=== PATIENT | male | born 1945 | race Caucasian/White ===

== ENCOUNTER → 2016-08-26 | Outpatient (CLI) | payer MEDICARE, MEDICAID ==
[~2016-08-26] MED LIST: ASP81TEC PO; CATHETER FLUSH 10 ML SYR IV PRN; IOHEXOL 350 MG/ML 100 ML (OMNIPAQUE 350) VIAL IV ONE; LSNP10T PO; MTP25TSR PO; PHEN-566 PO; PNT40TEC PO
[2016-08-26 09:37] LABS: ALANINE AMINOTRANSFERASE 23 U/L (0-55); ALBUMIN 4.3 G/DL (3.2-4.5); ANION GAP 11 MMOL/L (5-14); ASPARTATE AMINO TRANSFERASE 22 U/L (5-34); BILIRUBIN,TOTAL 0.5 MG/DL (0.1-1.0); BLOOD UREA NITROGEN 13 MG/DL (7-18); BUN/CREATININE RATIO 13; CALCIUM 9.6 MG/DL (8.5-10.1); CARBON DIOXIDE 22 MMOL/L (21-32); CHLORIDE 103 MMOL/L (98-107); CHOLESTEROL 218 MG/DL (< 200); CREATININE SERUM 1.02 MG/DL (0.60-1.30); DIRECT LDL 145 MG/DL (1-129); GFR ESTIMATED > 60; GLUCOSE 107 MG/DL (70-105); SODIUM 136 MMOL/L (135-145); TOTAL PROTEIN 7.2 G/DL (6.4-8.2); TRIGLYCERIDES 260 MG/DL (<150); VLDL CHOLESTEROL 52 MG/DL (5-40)
--- NOTE | 2016-08-26 11:33 | Diagnostic Imaging Report ---
EXAMINATION: CT angiogram of the abdomen. INDICATION: Followup aneurysm. CONTRAST: 100 mL of Omnipaque 350 was administered intravenously. COMPARISON: 12/30/2012. 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 There is a single renal artery on the right side and two left renal arteries noted at the same level. The aneurysm extends to the level of the bifurcation without aneurysm of the common iliac arteries which are patent. The visualized portions of the internal and external iliac arteries proximally are patent. There is an intramural thrombus within the aneurysm with a patent lumen. The SMA, celiac trunk, renal arteries, and MELLO are all patent. On 12/30/2012, the AAA maximum caliber was 5.2 cm. The lung bases appear clear. There is a 1.9 cm gallstone with no evidence of cholecystitis. The liver, spleen, pancreas, and adrenal glands appear unremarkable. There is a small to moderate fat-containing umbilical hernia. The osseous structures demonstrate grade 1 spondylolisthesis of L5 over S1 with underlying bilateral chronic appearing pars defects at the L5 level. IMPRESSION: 1. Enlarging infrarenal AAA now measuring 7.2 cm compared to 5.2 cm in 2013. 2. Small to moderate fat-containing umbilical hernia. 3. Cholelithiasis. The findings were discussed with Dr. Heath at 12:30 PM. Dictated by: Dictated on workstation # [id number]
== END ==
LOC: RAD 09:02
PROVIDERS: ATTEND Physician Assistant
DX: I10 Essential (primary) hypertension (principal); I71.4 Abdominal aortic aneurysm, without rupture; I25.10 Atherosclerotic heart disease of native coronary artery without angina pectoris; Z72.0 Tobacco use
CPT/HCPCS: 36415; 74175; 80053; 80061

== ENCOUNTER → 2016-09-04 | Outpatient (CLI) | payer MEDICARE, MEDICAID ==
[~2016-09-04] MED LIST changes: -CATHETER FLUSH 10 ML SYR IV PRN; -IOHEXOL 350 MG/ML 100 ML (OMNIPAQUE 350) VIAL IV ONE; +RT-ALBUTEROL SULF 2.5 MG/3 ML PRE-MIX VIAL IH ONE; +RT-ALBUTEROL SULF 2.5 MG/3 ML PRE-MIX VIAL ONE
== END ==
LOC: RT 14:51
PROVIDERS: ATTEND Thoracic Surgery (Cardiothoracic Vascular Surgery)
DX: Z01.818 Encounter for other preprocedural examination (principal)
CPT/HCPCS: 94060; 94640; 94726; 94729

== ENCOUNTER → 2016-09-09 | Outpatient (CLI) | payer MEDICARE, MEDICAID ==
[~2016-09-09] MED LIST changes: -RT-ALBUTEROL SULF 2.5 MG/3 ML PRE-MIX VIAL IH ONE; -RT-ALBUTEROL SULF 2.5 MG/3 ML PRE-MIX VIAL ONE
== END ==
LOC: CARD 11:18
PROVIDERS: ATTEND Thoracic Surgery (Cardiothoracic Vascular Surgery)
DX: Z01.818 Encounter for other preprocedural examination (principal)

== ENCOUNTER → 2016-09-14 | Outpatient (CLI) | payer MEDICARE, MEDICAID ==
[~2016-09-14] MED LIST changes: +CATHETER FLUSH 10 ML SYR IV PRN; +REGADENOSON 0.4 MG/5 ML SYR (LEXISCAN) IV ONE
[2016-09-14 09:05] VITALS: BP 119/56
--- NOTE | 2016-09-14 12:57 | STRESS TEST ---
DATE OF SERVICE: 09/14/2016 LEXISCAN MYOVIEW STRESS REPORT REFERRING PHYSICIANS: Dr. Chacon and Dr. Jordan Stevenson Baseline heart rate is 63. Baseline blood pressure 124/71. Baseline EKG is sinus rhythm with no ischemic changes. SUMMARY: The patient received 10.69 mCi of technetium-99 Myoview and the resting images were obtained. Then, the patient received 0.4 mg of Lexiscan followed by 30.4 mCi of technetium-99 Myoview. Throughout the test, there were no EKG changes. The resting and stress images were reviewed and compared in the short axis, horizontal long axis, and vertical long axis views. Review of the images showed diaphragmatic attenuation with mild decreased uptake at the mid to apical inferior wall and inferolateral wall. SSS is 6. SDS 6. TID value 1.17. On the gated images, the left ventricle appeared to be normal size with normal contractility. Calculated ejection fraction 65%. CONCLUSION: 1. The patient tolerated Lexiscan well. 2. Diaphragmatic attenuation affecting the quality of the images with mild decreased uptake at the mid to apical inferior wall and inferolateral wall with subtle reversibility. 3. Normal left ventricular size with normal contractility. Calculated ejection fraction 65%. Job ID: [id number] DocumentID: [id number] Dictated Date: 09/14/2016 11:56:58 Polymerization Engineer Date: 09/14/2016 12:52:31 Dictated By: ALFREDA HASSAN MD
== END ==
LOC: CARD 07:10
PROVIDERS: ATTEND Thoracic Surgery (Cardiothoracic Vascular Surgery)
DX: I71.4 Abdominal aortic aneurysm, without rupture (principal)
CPT/HCPCS: 78452; 93017

== ENCOUNTER → 2017-12-01 | Outpatient (CLI) | payer MEDICARE, MEDICAID ==
[~2017-12-01] MED LIST changes: -CATHETER FLUSH 10 ML SYR IV PRN; -REGADENOSON 0.4 MG/5 ML SYR (LEXISCAN) IV ONE
--- NOTE | 2017-12-01 11:20 | Diagnostic Imaging Report ---
PROCEDURE: CT abdomen and pelvis without contrast. TECHNIQUE: Multiple contiguous axial images were obtained through the abdomen and pelvis without the use of intravenous contrast. INDICATION: Incisional hernia, followup. COMPARISON: Comparison is made with prior CT from 08/26/2016. FINDINGS: The lung bases are clear. No discrete liver mass is identified. There is a stone within the gallbladder. The pancreas and spleen are unremarkable. No adrenal mass is detected. The kidneys are unremarkable. There has been surgical repair of previously noted abdominal aortic aneurysm. No periaortic fluid collection is seen. There is a midline ventral hernia. The hernia has increased since prior CT and contains fat as well as a portion of the transverse colon. The defect is approximately 6.5 cm transverse width. No bowel wall thickening or evidence of intestinal obstruction is seen. There is no ascites. The bladder and prostate are unremarkable. Bony structures are nonacute. There are pars defects at L5-S1 level. IMPRESSION: 1. Cholelithiasis. 2. Midline ventral hernia containing fat and a portion of the transverse colon. No bowel obstruction is seen. 3. Postsurgical changes to the abdominal aorta. Dictated by: Dictated on workstation # [id number]
== END ==
LOC: RAD 10:43
PROVIDERS: ATTEND Surgery
DX: K43.9 Ventral hernia without obstruction or gangrene (principal); K43.2 Incisional hernia without obstruction or gangrene; K80.20 Calculus of gallbladder without cholecystitis without obstruction; Z98.890 Other specified postprocedural states
CPT/HCPCS: 74176

== ENCOUNTER → 2018-02-01 | Outpatient (CLI) | payer MEDICARE, MEDICAID | LOC: CARD 09:55 | PROVIDERS: ATTEND Internal Medicine Cardiovascular Disease | DX: I71.4 Abdominal aortic aneurysm, without rupture (principal); Z82.49 Family history of ischemic heart disease and other diseases of the circulatory system; I10 Essential (primary) hypertension; R06.02 Shortness of breath; Z72.0 Tobacco use | CPT/HCPCS: 93306 ==

== ENCOUNTER → 2018-02-02 | Outpatient (CLI) | payer MEDICARE, MEDICAID ==
[~2018-02-02] MED LIST changes: +CATHETER FLUSH 10 ML SYR IV PRN; +REGADENOSON 0.4 MG/5 ML SYR (LEXISCAN) IV ONE
[2018-02-02 13:21] VITALS: BP 145/64
[2018-02-02 13:23] VITALS: BP 139/61
--- NOTE | 2018-02-03 07:33 | STRESS TEST ---
DATE OF SERVICE: 02/02/2018 LEXISCAN MYOVIEW STRESS TEST REPORT Baseline heart rate is 61, baseline blood pressure 145/64. Baseline EKG is sinus rhythm with no ischemic changes. In summary, the patient was injected with 10.49 mCi of technetium-99 Myoview and the resting images were obtained. Then, the patient received 0.4 mg of Lexiscan followed by 28.7 mCi of technetium-99 Myoview. Throughout the test, there were no EKG changes. The resting and stress images were reviewed and compared in the short axis, horizontal long axis, and vertical long axis views. Review of the images showed diaphragmatic attenuation affecting the quality of the images. There is mild decreased uptake at the mid to apical inferior wall and inferolateral wall with mild reversibility. SSS is 5, SDS is 5, TID value of 1.1. On the gated images, the left ventricle appeared to be in normal size with normal contractility. Calculated ejection fraction is 73%. CONCLUSION: 1. The patient tolerated the Lexiscan well. 2. Diaphragmatic attenuation affecting the quality of the images with questionable mild ischemia involving the mid to apical inferior wall and inferolateral wall. 3. Normal left ventricular size with normal contractility and calculated ejection fraction is 73%. Job ID: [id number] DocumentID: [id number] Dictated Date: 02/03/2018 06:51:35 Equipment Service Engineer Date: 02/03/2018 07:32:41 Dictated By: ALFREDA HASSAN MD
== END ==
LOC: CARD 11:46
PROVIDERS: ATTEND Internal Medicine Cardiovascular Disease
DX: I71.4 Abdominal aortic aneurysm, without rupture (principal); I10 Essential (primary) hypertension; R06.02 Shortness of breath; Z72.0 Tobacco use; Z82.49 Family history of ischemic heart disease and other diseases of the circulatory system
CPT/HCPCS: 78452; 93017

== ENCOUNTER 2018-07-16 09:00 | Emergency (ER) | payer MEDICARE, MEDICAID ==
[~2018-07-16] VITALS: Ht 172.7 cm; Wt 90.7 kg
[~2018-07-16 09:00] MED LIST changes: -CATHETER FLUSH 10 ML SYR IV PRN; -REGADENOSON 0.4 MG/5 ML SYR (LEXISCAN) IV ONE
--- OUTSIDE RECORDS SUMMARY | 2018-07-16 09:05 | XMS REPORT | Continuity of Care Document ---
Author Author [facility] Organization [facility] Address Unknown Phone Unavailable Care Team Providers Care Graduating Machine Operator Name Role Phone MARGIE OLMSTEAD MD PP Insurance Providers Payer Name Policy Number Subscriber Name Relationship Dexter [employer] [id number] Joselito Caldwell Self / Same As Patient [employer] [id number] Joselito Caldwell Self / Same As Patient Advance Directives Directive Response Recorded Date Advance Directives N 01/29/13 12:39am Problems No Known Problems or Medical conditions. Family History History Response Recorded Date/Time Hx Family Cancer N 01/29/13 12:41am Hx Family Cardiac Disorders Y 01/29/13 12 :41am Hx Family Hypertension N 01/29/13 12: 41am Hx Family Myocardial Infarction Y Father at 45 from [place] 01/29/13 12:41am Social History History Response Recorded Date/Time Alcohol Use Past History 01/29/13 12: 41am Recreational Drug Use N 01/29/13 12:41am Allergies, Adverse Reactions, Alerts Allergen Type Severity Reaction Last Updated No Known Drug Allergies 12/28/12 Medications Medication Dose Units Route Sig Qty Days Pantoprazole Sodium (Protonix) 40 Mg PO DAILY Lisinopril (Zestril) 10 Mg PO DAILY Metoprolol Succinate (Toprol Xl 25MG) 25 Mg PO DAILY Aspirin (Aspirin Ec 81 Mg) 81 Mg PO DAILY Phentermine Hcl (Suprenza Odt) 37.5 Mg PO DAILY Immunizations Name Given Type Date of Pneumonia Vaccine 06/25/11 H influenza, split (incl. purified surface antigen) 01/30/13 A influenza, split (incl. purified surface antigen) 01/30/13 A Response Recorded Date/Time Status not known Unknown Results Test Date Result Interp. Ref. Range Activated Partial Thromboplast Time January 28, 2013 8:00pm 33 SEC N 24-35 Alanine Aminotransferase (ALT/SGPT) January 28, 2013 8:00pm 30 U/L N 30-65 Albumin January 28, 2013 8:00pm 3.8 G/ DL N 3.4-5.0 Alkaline Phosphatase January 28, 2013 8:00pm 99 U/L N 50-136 Amylase Level December 28, 2012 1:28pm 40 U/L N 25-115 Aspartate Amino Transf (AST/SGOT) January 28, 2013 8:00pm 19 U/L N 15-37 BUN/Creatinine Ratio January 28, 2013 8:00pm 10 - Basophils # (Auto) January 28, 2013 8:00pm 0.1 10^3/uL N 0.0-0.1 Basophils (%) (Auto) January 28, 2013 8:00pm 1 % N 0-10 Blood Urea Nitrogen January 28, 2013 8:00pm 10 MG/DL N 7-18 Calcium Level January 28, 2013 8:00pm 8.9 MG/DL N 8.5-10.1 Carbon Dioxide Level January 28, 2013 8:00pm 28 MMOL/L N 21-32 Chloride Level January 28, 2013 8:00pm 100 MMOL/L L 101-110 Creatine Kinase MB January 28, 2013 8:00pm 2.0 NG/ML N 0.0-3.6 Creatinine January 28, 2013 8:00pm 1.0 MG/DL N 0.6-1.3 D-Dimer December 28, 2012 1:28pm 0.86 UG/ML H 0.00-0.49 Eosinophils # (Auto) January 28, 2013 8:00pm 0.4 10^3/uL H 0.0-0.3 Eosinophils (%) (Auto) January 28, 2013 8:00pm 4 % N 0-10 Glucose Level January 28, 2013 8:00pm 96 MG/DL N 74-106 Hematocrit January 28, 2013 8:00pm 40 % N 40-54 Hemoglobin January 28, 2013 8:00pm 14.0 G/DL N 13.3-17.7 Lipase December 28, 2012 1:28pm 206 U/ L N 73-393 Lymphocytes # (Auto) January 28, 2013 8:00pm 2.2 X 10^3 N 1.0-4.0 Lymphocytes (%) (Auto) January 28, 2013 8:00pm 22 % N 12-44 Magnesium Level January 28, 2013 8:00pm 1.9 MG/DL N 1.8-2.4 Mean Corpuscular Hemoglobin January 28, 2013 8:00pm 30 PG N 25-34 Mean Corpuscular Hemoglobin Concent January 28, 2013 8:00pm 35 G/DL N 32-36 Mean Corpuscular Volume January 28, 2013 8:00pm 87 FL N 80-99 Mean Platelet Volume January 28, 2013 8:00pm 9.6 FL N 7.4-10.4 Monocytes # (Auto) January 28, 2013 8:00pm 0.9 X 10^3 N 0.0-1.0 Monocytes (%) (Auto) January 28, 2013 8:00pm 9 % N 0-12 Myoglobin January 28, 2013 8:00pm 72 UG/ L N 10-92 Neutrophils # (Auto) January 28, 2013 8:00pm 6.9 X 10^3 N 1.8-7.8 Neutrophils (%) (Auto) January 28, 2013 8:00pm 66 % N 42-75 Platelet Count January 28, 2013 8:00pm 260 10^3/uL N 130-400 Potassium Level January 28, 2013 8:00pm 3.6 MMOL/L N 3.6-5.0 Prothrombin Time January 28, 2013 8:00pm 12.4 SEC N 12.2-14.7 Red Blood Count January 28, 2013 8:00pm 4.62 10^6/uL N 4.35-5.85 Red Cell Distribution Width January 28, 2013 8:00pm 12.5 % N 10.0-14.5 Sodium Level January 28, 2013 8:00pm 137 MMOL/L N 135-145 Total Bilirubin January 28, 2013 8:00pm 0.2 MG/DL N 0.0-1.0 Total Creatine Kinase January 28, 2013 8:00pm 240 U/L H 1-205 Total Protein January 28, 2013 8:00pm 7.5 G/DL N 6.4-8.2 Troponin I January 28, 2013 8:00pm < 0.10 NG/ML 0.00-0.10 White Blood Count January 28, 2013 8:00pm 10.4 10^3/uL N 4.3-11.0 Pro-B-Type Natriuretic Peptide December 28, 2012 1:28pm 43.9 PG/ML N -125 Estimat Glomerular Filtration Rate January 28, 2013 8:00pm > 60 - INR Comment January 28, 2013 8:00pm 0.9 N 0.8-1.4 Encounters Encounter Location Date/Time Discharged Inpatient [facility] 11:11pm Departed Emergency Room [facility] 09/05
--- OUTSIDE RECORDS SUMMARY | 2018-07-16 09:05 | XMS REPORT | Continuity of Care Document ---
Author Author [facility] Organization [facility] Address Unknown Phone Unavailable Allergies Active Description Code Type Severity Reaction Onset Reported/Identified Relationship to Patient Clinical Status Yes No Known Drug Allergies [id number] Drug Allergy Unknown N/A 12/28/2012 Medications There is no data. Problems Date Dx Coded Attending Type Code Diagnosis Diagnosed By 12/28/2012 RICHARD QUINTANILLA DO Ot 441.4 ABDOM AORTIC ANEURYSM 12/28/2012 RICHARD QUINTANILLA DO Ot 574.20 CHOLELITHIASIS NOS 12/28/2012 RICHARD QUINTANILLA DO Ot 786.50 CHEST PAIN NOS 01/28/2013 DO MOMIN MD Ot 786.50 CHEST PAIN NOS 01/30/2013 MARGIE OLMSTEAD MD Ot 305.1 TOBACCO USE DISORDER 01/30/2013 MARGIE OLMSTEAD MD Ot 401.9 HYPERTENSION NOS 01/30/2013 MARGIE OLMSTEAD MD Ot 413.9 ANGINA PECTORIS NEC/NOS 01/30/2013 MARGIE OLMSTEAD MD Ot 427.89 CARDIAC DYSRHYTHMIAS NEC 01/30/2013 MARGIE OLMSTEAD MD Ot 441.4 ABDOM AORTIC ANEURYSM 01/30/2013 MARGIE OLMSTEAD MD Ot 496 CHR AIRWAY OBSTRUCT NEC 01/30/2013 MARGIE OLMSTEAD MD Ot 553.1 UMBILICAL HERNIA 01/30/2013 MARGIE OLMSTEAD MD Ot 574.20 CHOLELITHIASIS NOS 01/30/2013 MARGIE OLMSTEAD MD Ot 724.5 BACKACHE NOS 01/30/2013 MARGIE OLMSTEAD MD Ot 786.50 CHEST PAIN NOS 01/30/2013 MARGIE OLMSTEAD MD Ot V17.3 FAM HX-[place] HEART DIS 01/07/2014 MOLLY DAN, RUBÉN Blum Ot 401.9 HYPERTENSION NOS 01/07/2014 MOLLY DAN, RUBÉN Blum Ot 780.52 INSOMNIA, UNSPECIFIED 01/07/2014 MOLLY DAN, RUBÉN Blum Ot 784.0 HEADACHE 09/26/2014 ISHAN DAN, MARGIE Colin Ot 441.4 09/26/2014 ISHAN DAN, MARGIE Colin Ot 574.20 09/27/2015 ISHAN DAN, MARGIE Colin Ot 441.4 ABDOM AORTIC ANEURYSM 09/27/2015 ISHAN DAN, MARGIE Colin Ot 574.20 CHOLELITHIASIS NOS 10/01/2015 AJ DO, CECILIA K Ot J44.9 CHRONIC OBSTRUCTIVE PULMONARY DISEASE, U 10/17/2015 JA DO, CECILIA K Ot J44.9 CHRONIC OBSTRUCTIVE PULMONARY DISEASE, U 10/29/2015 JA DO, CECILIA K Ot J44.9 CHRONIC OBSTRUCTIVE PULMONARY DISEASE, U 08/26/2016 DEWAYNE LÓPEZ K Ot I10 ESSENTIAL (PRIMARY) HYPERTENSION 08/26/2016 BUCK LÓPEZTH K Ot I10 ESSENTIAL (PRIMARY) HYPERTENSION 08/26/2016 BUCK LÓPEZTH K Ot I10 ESSENTIAL (PRIMARY) HYPERTENSION 08/26/2016 SHAVON HORAN DEWAYNE K Ot I10 ESSENTIAL (PRIMARY) HYPERTENSION 08/26/2016 SHAVON HORAN DEWAYNE K Ot I10 ESSENTIAL (PRIMARY) HYPERTENSION 09/16/2016 SHAVON HORAN DEWAYNE K Ot I10 ESSENTIAL (PRIMARY) HYPERTENSION 09/16/2016 CHEVY LÓPEZDITH K Ot I25.10 ATHSCL HEART DISEASE OF [place] CORONARY 09/16/2016 BUCK LÓPEZTH K Ot I71.4 ABDOMINAL AORTIC ANEURYSM, WITHOUT RUPTU 09/16/2016 BUCK LÓPEZTH K Ot Z72.0 TOBACCO USE 10/01/2016 BUCK LÓPEZTH K Ot I10 ESSENTIAL (PRIMARY) HYPERTENSION 10/01/2016 BUCK LÓPEZTH K Ot I25.10 ATHSCL HEART DISEASE OF [place] CORONARY 10/01/2016 DEWAYNE LÓPEZ K Ot I71.4 ABDOMINAL AORTIC ANEURYSM, WITHOUT RUPTU 10/01/2016 DEWAYNE LÓPEZ K Ot Z72.0 TOBACCO USE 10/07/2016 MARIE DAN, DEEPTHI Shabazz Ot I71.4 ABDOMINAL AORTIC ANEURYSM, WITHOUT RUPTU 10/14/2016 DEEPTHI SALAZAR MD Ot I71.4 ABDOMINAL AORTIC ANEURYSM, WITHOUT RUPTU 10/19/2016 MARIE DAN, DEEPTHI Shabazz Ot Z01.818 ENCOUNTER FOR OTHER PREPROCEDURAL EXAMIN 11/02/2016 MARIE DAN, DEEPTHI Shabazz Ot Z01.818 ENCOUNTER FOR OTHER PREPROCEDURAL EXAMIN 11/21/2016 DEEPTHI SALAZAR MD Ot Z01.818 ENCOUNTER FOR OTHER PREPROCEDURAL EXAMIN 01/24/2017 MERRILL DAN, DO Saini Ot 786.50 CHEST PAIN NOS 12/21/2017 Ot K43.2 INCISIONAL HERNIA WITHOUT OBSTRUCTION OR 12/21/2017 Ot K43.9 VENTRAL HERNIA WITHOUT OBSTRUCTION OR GA 12/21/2017 Ot K80.20 CALCULUS OF GALLBLADDER W/O CHOLECYSTITI 12/21/2017 Ot Z98.890 OTHER SPECIFIED POSTPROCEDURAL STATES 12/30/2017 Ot K43.2 INCISIONAL HERNIA WITHOUT OBSTRUCTION OR 12/30/2017 Ot K43.9 VENTRAL HERNIA WITHOUT OBSTRUCTION OR GA 12/30/2017 Ot K80.20 CALCULUS OF GALLBLADDER W/O CHOLECYSTITI 12/30/2017 Ot Z98.890 OTHER SPECIFIED POSTPROCEDURAL STATES 02/01/2018 ISHAN DAN, MARGIE Colin Ot 441.4 ABDOM AORTIC ANEURYSM 02/01/2018 ISHAN DAN, MARGIE Colin Ot 574.20 CHOLELITHIASIS NOS 02/01/2018 CECILIA PERES DO Ot J44.9 CHRONIC OBSTRUCTIVE PULMONARY DISEASE, U 02/01/2018 DEWAYNE LÓPEZ Ot I10 ESSENTIAL (PRIMARY) HYPERTENSION 02/01/2018 DEWAYNE LÓPEZ Ot I25.10 ATHSCL HEART DISEASE OF [place] CORONARY 02/01/2018 DEWAYNE LÓPEZ Ot I71.4 ABDOMINAL AORTIC ANEURYSM, WITHOUT RUPTU 02/01/2018 DEWAYNE LÓPEZ Ot Z72.0 TOBACCO USE 02/01/2018 MARIE DAN, DEEPTHI Shabazz Ot Z01.818 ENCOUNTER FOR OTHER PREPROCEDURAL EXAMIN 02/01/2018 DEEPTHI SALAZAR MD Ot Z01.818 ENCOUNTER FOR OTHER PREPROCEDURAL EXAMIN 02/01/2018 DEEPTHI SALAZAR MD Ot I71.4 ABDOMINAL AORTIC ANEURYSM, WITHOUT RUPTU 02/01/2018 Ot K43.2 INCISIONAL HERNIA WITHOUT OBSTRUCTION OR 02/01/2018 Ot K43.9 VENTRAL HERNIA WITHOUT OBSTRUCTION OR GA 02/01/2018 Ot K80.20 CALCULUS OF GALLBLADDER W/O CHOLECYSTITI 02/01/2018 Ot Z98.890 OTHER SPECIFIED POSTPROCEDURAL STATES 02/04/2018 ALFREDA HASSAN MD Ot I10 ESSENTIAL (PRIMARY) HYPERTENSION 02/04/2018 ALFREDA HASSAN MD Ot I71.4 ABDOMINAL AORTIC ANEURYSM, WITHOUT RUPTU 02/04/2018 ALFREDA HASSAN MD Ot R06.02 SHORTNESS OF BREATH 02/04/2018 ALFREDA HASSAN MD Ot Z72.0 TOBACCO USE 02/04/2018 ALFREDA HASSAN MD Ot Z82.49 FAMILY HX OF [place] HEART DIS AND OTH DI 02/05/2018 ALFREDA HASSAN MD Ot I10 ESSENTIAL (PRIMARY) HYPERTENSION 02/05/2018 ALFREDA HASSAN MD Ot I71.4 ABDOMINAL AORTIC ANEURYSM, WITHOUT RUPTU 02/05/2018 ALFREDA HASSAN MD Ot R06.02 SHORTNESS OF BREATH 02/05/2018 ALFREDA HASSAN MD Ot Z72.0 TOBACCO USE 02/05/2018 ALFREDA HASSAN MD Ot Z82.49 FAMILY HX OF [place] HEART DIS AND OTH DI 02/08/2018 ALFREDA HASSAN MD Ot I10 ESSENTIAL (PRIMARY) HYPERTENSION 02/08/2018 ALFREDA HASSAN MD Ot I71.4 ABDOMINAL AORTIC ANEURYSM, WITHOUT RUPTU 02/08/2018 ALFREDA HASSAN MD Ot R06.02 SHORTNESS OF BREATH 02/08/2018 ALFREDA HASSAN MD Ot Z72.0 TOBACCO USE 02/08/2018 ALFREDA HASSAN MD Ot Z82.49 FAMILY HX OF [place] HEART DIS AND OTH DI 02/22/2018 ALFREDA HASSAN MD Ot I10 ESSENTIAL (PRIMARY) HYPERTENSION 02/22/2018 ALFREDA HASSAN MD Ot I71.4 ABDOMINAL AORTIC ANEURYSM, WITHOUT RUPTU 02/22/2018 ALFREDA HASSAN MD Ot R06.02 SHORTNESS OF BREATH 02/22/2018 ALFREDA HASSAN MD Ot Z72.0 TOBACCO USE 02/22/2018 ALFREDA HASSAN MD Ot Z82.49 FAMILY HX OF [place] HEART DIS AND OTH DI 02/22/2018 ALFREDA HASSAN MD Ot I10 ESSENTIAL (PRIMARY) HYPERTENSION 02/22/2018 ALFREDA HASSAN MD Ot I71.4 ABDOMINAL AORTIC ANEURYSM, WITHOUT RUPTU 02/22/2018 ALFREDA HASSAN MD Ot R06.02 SHORTNESS OF BREATH 02/22/2018 ALFREDA HASSAN MD Ot Z72.0 TOBACCO USE 02/22/2018 ALFREDA HASSAN MD Ot Z82.49 FAMILY HX OF [place] HEART DIS AND OTH DI 03/03/2018 ALFREDA HASSAN MD Ot I10 ESSENTIAL (PRIMARY) HYPERTENSION 03/03/2018 ALFREDA HASSAN MD Ot I71.4 ABDOMINAL AORTIC ANEURYSM, WITHOUT RUPTU 03/03/2018 ALFREDA HASSAN MD Ot R06.02 SHORTNESS OF BREATH 03/03/2018 ALFREDA HASSAN MD Ot Z72.0 TOBACCO USE 03/03/2018 ALFREDA HASSAN MD Ot Z82.49 FAMILY HX OF [place] HEART DIS AND OTH DI 03/03/2018 ALFREDA HASSAN MD Ot I10 ESSENTIAL (PRIMARY) HYPERTENSION 03/03/2018 ALFREDA HASSAN MD Ot I71.4 ABDOMINAL AORTIC ANEURYSM, WITHOUT RUPTU 03/03/2018 ALFREDA HASSAN MD Ot R06.02 SHORTNESS OF BREATH 03/03/2018 ALFREDA HASSAN MD Ot Z72.0 TOBACCO USE 03/03/2018 ALFREDA HASSAN MD Ot Z82.49 FAMILY HX OF [place] HEART DIS AND OTH DI Procedures There is no data. Results There is no data. Encounters ACCT No. Visit Date/Time Discharge Status Pt. Type Provider Facility Loc./Unit Complaint [id number] 02/02/2018 11:46:00 02/02/2018 23:59:59 CLS Outpatient ALFREDA HASSAN MD [facility] CARD ABDOMINAL AORTIC ANEURYSM [id number] 02/01/2018 09:55:00 02/01/2018 23:59:59 CLS Outpatient ALFREDA HASSAN MD [facility] CARD ABDOMINAL AORTIC ANEURYSM [id number] 09/14/2016 07:10:00 09/14/2016 23:59:59 CLS Outpatient DEEPTHI SALAZAR MD [facility] CARD Z01.818 PREOP OP CLEARANCE [id number] 09/09/2016 11:18:00 09/09/2016 23:59:59 CLS Outpatient DEEPTHI SALAZAR MD [facility] CARD Z01.818 PRE OP CLEARANCE [id number] 09/04/2016 14:51:00 09/04/2016 23:59:59 CLS Outpatient DEEPTHI SALAZAR MD [facility] RT Z01.818 PREOP CLEARANCE [id number] 08/26/2016 09:02:00 08/26/2016 23:59:59 CLS Outpatient DEWAYNE LÓPEZ [facility] RAD I71.4,I25.10, I10 [id number] 09/27/2015 14:15:00 09/27/2015 23:59:59 CLS Outpatient CECILIA PERES DO [facility] RT COPD [id number] 01/07/2014 19:11:00 01/07/2014 20:41:00 DIS Emergency RUBÉN BARNES MD [facility] ER HEADACHE [id number] 01/28/2013 23:11:00 01/30/2013 11:05:00 DIS Inpatient MARGIE OLMSTEAD MD [facility] ICU CHEST PAIN [id number] 01/28/2013 19:54:00 01/28/2013 23:59:59 CLS Emergency DO MOMIN MD [facility] ER CHEST PAIN [id number] 12/30/2012 07:31:00 12/30/2012 23:59:59 CLS Outpatient MARGIE OLMSTEAD MD [facility] RAD AAA [id number] 12/28/2012 12:50:00 12/28/2012 17:55:00 DIS Emergency RICHARD QUINTANILLA DO [facility] ER COUGH [id number] 12/01/2017 10:43:00 Document Registration
[2018-07-16] MEDS ORDERED: RT-ALBUTEROL SULF 2.5 MG/3 ML PRE-MIX VIAL INH STA ×2 (09:13→10:09)
--- NOTE | 2018-07-16 09:35 | NUR ---
Pt states that he feels much better after the breathing tx he got in route.
[2018-07-16] MEDS ORDERED: CLOP75TA69 PO (09:40)
[2018-07-16] MEDS ORDERED: TAMS0.4C98 PO (09:41)
--- NOTE | 2018-07-16 09:45 | ED General ---
General Chief Complaint: Respiratory Problems Stated Complaint: SOB Nursing Triage Note: pt arrived by ems with c/o SOB this morning. Pt started coughing et having nasal drainage two days ago. Today he was planning to go to express care but was SOB this morning and decided to come to ER. Nursing Sepsis Screen: No Definite Risk Source of Information: Patient Exam Limitations: No Limitations History of Present Illness Date Seen by Provider: Jul 16, 2018 Time Seen by Provider: 09:10 Initial Comments Here with 2 days of increasing shortness of air with cough and runny nose. This morning was much worse so he decided come to the emergency department. Unsure about fever. Denies nausea or vomiting. Has otherwise been eating and drinking okay. Denies diarrhea. Does have a long history of smoking and smokes up to 2 packs a day. He is thinking about quitting. Timing/Duration: 2-3 Days, Getting Worse Severity: Moderate Modifying Factors: improves with Rest Associated Systoms: No Chest Pain; Cough; No Fever/Chills, No Nausea/Vomiting; Shortness of Air Allergies and Home Medications Allergies Coded Allergies: No Known Drug Allergies (Unverified , 12/28/12) Home Medications Albuterol Sulfate 1 Puff Puff, 2 PUFF INH Q4H PRN for WHEEZING 1 PUFF = 90 MCG Prescribed by: LEXY BARRON on 07/16/18 112 Aspirin 81 Mg Tabec, 81 MG PO DAILY, (Reported) Clopidogrel Bisulfate 75 Mg Tablet, 75 MG PO DAILY, (Reported) Lisinopril 10 Mg Tab, 10 MG PO DAILY, (Reported) Metoprolol Succinate 25 Mg Tab.sr.24h, 25 MG PO DAILY, (Reported) Pantoprazole Sodium 40 Mg Tablet.dr, 40 MG PO DAILY, (Reported) Prednisone 20 Mg Tab, 40 MG PO DAILY Prescribed by: LEXY BARRON on 07/16/18 112 Patient Home Medication List Home Medication List Reviewed: Yes Review of Systems Review of Systems Constitutional: see HPI; No chills, No fever EENTM: nose congestion; No throat pain Respiratory: cough, short of breath, wheezing Cardiovascular: No chest pain, No edema Gastrointestinal: No abdominal pain, No nausea, No vomiting Genitourinary: no symptoms reported Musculoskeletal: no symptoms reported Skin: no symptoms reported Psychiatric/Neurological: No Symptoms Reported All Other Systems Reviewed Negative Unless Noted: Yes Past Yyrgpgp-[id number]-Faqzbm Hx Past Med/Social Hx: Reviewed Nursing Past Med/Soc Hx Patient Social History Alcohol Use: Denies Use Recreational Drug Use: No Smoking Status: Current Everyday Smoker Type Used: Cigarettes Recent Foreign Travel: No Contact w/Someone Who Travel: No Recent Infectious Disease Expo: No Recent Hopitalizations: No Immunizations Up To Date Tetanus Booster (TDap): Unknown Date of Pneumonia Vaccine: Jun 25, 2011 Seasonal Allergies Seasonal Allergies: No Past Medical History Surgeries: Yes (CYST REMOVED FROM BACK, aneurysm) Respiratory: Yes COPD Cardiac: Yes Aneurysm Neurological: No Gastrointestinal: No Musculoskeletal: No Endocrine: No Cancer: No Psychosocial: No Integumentary: No Blood Disorders: No Family Medical History Reviewed Nursing Family Hx Physical Exam-Suspected Sepsis Physical Exam Vital Signs Vital Signs - First Documented 07/16/18 07/16/18 07/16/18 09:05 09:49 10:46 Temp 97.2 Pulse 72 Resp 28 B/P (MAP) 156/77 (103) Pulse Ox 97 O2 Delivery Nasal Cannula O2 Flow Rate 2.00 FiO2 28 Capillary Refill : Less Than 3 Seconds Blood Pressure Mean: 103 Height, Weight, BMI Height: 5'8.00" Weight: 200lbs. 5.0oz. [id number]; BMI Method:Stated General Appearance: WD/WN, Mild Distress (respiratory) HEENT: PERRL/EOMI, Pharyngeal Erythema, Other (bilateral nasal congestion with clear rhinorrhea) Neck: Non Tender, Supple Respiratory: Accessory Muscle Use, Decreased Breath Sounds, Expiration, Wheezing Cardiovascular: Regular Rate, Rhythm Gastrointestinal: Normal Bowel Sounds Back: Normal Inspection, No CVA Tenderness, No Vertebral Tenderness Extremity: Normal Range of Motion, Non Tender Neurologic/Psychiatric: Alert, Oriented x3 Skin: normal color, warm/dry Focused Exam Lactate Level 07/16/18 09:59: Lactic Acid Level 1.52 Lactic Acid Level Laboratory Tests Test 07/16/18 09:59 Lactic Acid Level 1.52 MMOL/L (0.50-2.00) Progress/Results/Core Measures Suspected Sepsis Recent Fever Within 48 Hours: No Infection Criteria Present: Suspected New Infection New/Unexplained Altered Menta: No Sepsis Screen: No Definite Risk SIRS Temperature:97.2 Pulse: 72 Respiratory Rate: Laboratory Tests 07/16/18 09:59: White Blood Count 4.9 Blood Pressure 156 /77 Mean: 103 3/23/19 09:59: Lactic Acid Level 1.52 Laboratory Tests 07/16/18 09:59: Creatinine 1.01, INR Comment 1.0, Platelet Count 189, Total Bilirubin 0.3 Results/Orders Lab Results Laboratory Tests Test 07/16/18 09:59 07/16/18 10:04 Range/Units White Blood Count 4.9 4.3-11.0 10^3/uL Red Blood Count 4.71 4.35-5.85 10^6/uL Hemoglobin 13.7 13.3-17.7 G/DL Hematocrit 41 40-54 % Mean Corpuscular Volume 87 80-99 FL Mean Corpuscular Hemoglobin 29 25-34 PG Mean Corpuscular Hemoglobin Concent 34 32-36 G/DL Red Cell Distribution Width 13.6 10.0-14.5 % Platelet Count 189 130-400 10^3/uL Mean Platelet Volume 10.1 7.4-10.4 FL Neutrophils (%) (Auto) 63 42-75 % Lymphocytes (%) (Auto) 22 12-44 % Monocytes (%) (Auto) 13 H 0-12 % Eosinophils (%) (Auto) 1 0-10 % Basophils (%) (Auto) 1 0-10 % Neutrophils # (Auto) 3.1 1.8-7.8 X 10^3 Lymphocytes # (Auto) 1.1 1.0-4.0 X 10^3 Monocytes # (Auto) 0.6 0.0-1.0 X 10^3 Eosinophils # (Auto) 0.1 0.0-0.3 10^3/uL Basophils # (Auto) 0.0 0.0-0.1 10^3/uL Prothrombin Time 13.1 12.2-14.7 SEC INR Comment 1.0 0.8-1.4 Activated Partial Thromboplast Time 31 24-35 SEC Sodium Level 131 L 135-145 MMOL/L Potassium Level 3.8 3.6-5.0 MMOL/L Chloride Level 98 98-107 MMOL/L Carbon Dioxide Level 24 21-32 MMOL/L Anion Gap 9 5-14 MMOL/L Blood Urea Nitrogen 12 7-18 MG/DL Creatinine 1.01 0.60-1.30 MG/DL Estimat Glomerular Filtration Rate > 60 BUN/Creatinine Ratio 12 Glucose Level 113 H 70-105 MG/DL Lactic Acid Level 1.52 0.50-2.00 MMOL/L Calcium Level 9.3 8.5-10.1 MG/DL Corrected Calcium 8.5-10.1 MG/DL Total Bilirubin 0.3 0.1-1.0 MG/DL Aspartate Amino Transf (AST/SGOT) 24 5-34 U/L Alanine Aminotransferase (ALT/SGPT) 15 0-55 U/L Alkaline Phosphatase 69 40-136 U/L Total Protein 7.4 6.4-8.2 GM/DL Albumin 4.6 H 3.2-4.5 GM/DL Urine Color YELLOW Urine Clarity CLEAR Urine pH 6 5-9 Urine Specific [place] 1.020 1.016-1.022 Urine Protein 1+ H NEGATIVE Urine Glucose (UA) NEGATIVE NEGATIVE Urine Ketones NEGATIVE NEGATIVE Urine Nitrite NEGATIVE NEGATIVE Urine Bilirubin NEGATIVE NEGATIVE Urine Urobilinogen 1 NORMAL MG/DL Urine Leukocyte Esterase NEGATIVE NEGATIVE Urine RBC (Auto) 1+ H NEGATIVE Urine RBC 0-2 /HPF Urine WBC NONE /HPF Urine Squamous Epithelial Cells NONE /HPF Urine Crystals NONE /LPF Urine Bacteria NEGATIVE /HPF Urine Casts NONE /LPF Urine Mucus SMALL H /LPF Urine Culture Indicated CULTURE PENDING Micro Results Microbiology 07/16/18 Influenza Types A,B Antigen ([facility]) - Final, Complete My Orders Orders - LEXY BARRON MD Albuterol Pre-Mix Nebs (Rt) (Proventil (07/16/18 09:13) Cbc With Automated Diff (07/16/18 09:13) Comprehensive Metabolic Panel (07/16/18 09:13) Blood Culture (07/16/18 09:13) Sputum Culture (07/16/18 09:13) Urinalysis (07/16/18 09:13) Urine Culture (07/16/18 09:13) Protime With Inr (07/16/18 09:13) Partial Thromboplastin Time (07/16/18 09:13) Chest 1 View, Ap/Pa Only (07/16/18 09:13) Saline Lock/Iv-Start (07/16/18 09:13) Ekg Tracing (07/16/18 09:13) Vital Signs Adult Sepsis Patie Q15M (07/16/18 09:13) O2 (07/16/18 09:13) Remove Rings In Anticipation O (07/16/18 09:13) Lactic Acid Analyzer (07/16/18 09:13) Influenza A And B Antigens (07/16/18 09:13) Svn Small Volume Nebulizer (07/16/18 09:13) Albuterol Pre-Mix Nebs (Rt) (Proventil (07/16/18 10:09) Ipratropium 0.02% Neb Solution (Atrovent (07/16/18 10:15) Methylprednisolone Sod Succ (Solu-Medrol (07/16/18 10:09) Svn Small Volume Nebulizer (07/16/18 10:09) Svn Small Volume Nebulizer (07/16/18 10:09) Ipratropium 0.02% Neb Solution (Atrovent (07/16/18 10:10) Prednisone Tablet (Deltasone Tablet) (07/16/18 11:30) Medications Given in ED Current Medications Medications Dose Ordered Sig/Eunice Route Start Time Stop Time Status Last Admin Dose Admin Ipratropium [place] 0.5 mg ONCE ONCE IH 07/16/18 10:15 07/16/18 10:16 DC 07/16/18 10:14 0.5 MG Prednisone 40 mg ONCE ONCE PO 07/16/18 11:30 07/16/18 11:31 DC 07/16/18 11:24 40 MG Vital Signs/I&O 07/16/18 07/16/18 07/16/18 07/16/18 09:05 09:29 09:49 10:15 Temp 97.2 Pulse 72 B/P (MAP) 156/77 (103) Pulse Ox 97 98 97 O2 Delivery Nasal Cannula Nasal Cannula Nasal Cannula Nasal Cannula O2 Flow Rate 2.00 2.00 2.00 1.00 FiO2 28 07/16/18 10:46 Temp 98.8 Pulse 102 Resp 28 B/P (MAP) 156/77 Pulse Ox 98 O2 Delivery High Flow NC O2 Flow Rate 8.00 Capillary Refill : Less Than 3 Seconds Blood Pressure Mean: 103 Progress Note : Progress Note Seen and evaluated. IV, labs, EKG, chest x-ray, albuterol neb 3 as she's had one DuoNeb by EMS. The initial DuoNeb helped a little bit but still very tight and wheezing. Monitor patient. 1010: Patient still fairly tight and wheezing. Continuous one-hour treatment ordered. Solu-Medrol 125 mg IV ordered. Monitor patient. 1115: Are long treatment complete. Patient offered admission and declines. He states he has a lot of stuff at home and has to take care of. I did discuss my concerns related to the breathing and he states that he lives just one block away and will return for any concerns. We will initiate prednisone 40 mg by mouth now. We'll monitor him for a little bit that he consented to and then discharged home. Outpatient prescriptions for albuterol inhaler and prednisone. Discharged home with return precautions. Patient verbalize understanding instructions and agreement with plan. 1210: O2 sat 95% on room air. 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 Copy of chart to Dr. Carrillo. 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 Left axis deviation. No evidence of ST elevation ID. Interpreted by me. Departure Impression Primary Impression: COPD with acute exacerbation Disposition: HOME, SELF-CARE Condition: Stable Departure-Patient Inst. Decision time for Depature: 11:18 Referrals: NO,LOCAL PHYSICIAN (PCP/Family) Primary Care Physician Patient Instructions: Exacerbation of COPD (DC) Add. Discharge Instructions: All discharge instructions reviewed with patient and/or family. Voiced understanding. Take medications as directed. You had your first dose of steroids today so you will start that prescription tomorrow. Use inhaler as directed as needed. You were offered admission but elected not to stay. Despite this, I encourage you to return for any concerns. Certainly return for increasing shortness of breath , weakness, chest pain, fever, vomiting or other concerns as needed. Follow-up with your doctor on Wednesday for recheck and further evaluation. Scripts Albuterol Sulfate (VENTOLIN HFA) 1 Puff Puff 2 PUFF INH Q4H PRN for WHEEZING, #1 INHALER 1 Refill 1 PUFF = 90 MCG Prov: LEXY BARRON MD 07/16/18 Prednisone (Prednisone) 20 Mg Tab 40 MG PO DAILY, #10 TAB 0 Refills Prov: LEXY BARRON MD 07/16/18 Copy Copies To 1: DEANNA CARRILLO MD, TIMOTHY D MD Jul 16, 2018 09:45
[2018-07-16] MEDS ORDERED: methylPREDNISolone 125 MG (Solu-MEDROL) VIAL IV STA (10:09)
[2018-07-16 10:10] LABS: BASOPHILS % (AUTO) 1 % (0-10); EOSINOPHILS # (AUTO) 0.1 10^3/uL (0.0-0.3); EOSINOPHILS % (AUTO) 1 % (0-10); HEMATOCRIT 41 % (40-54); HEMOGLOBIN 13.7 G/DL (13.3-17.7); LYMPHOCYTES # (AUTO) 1.1 X 10^3 (1.0-4.0); LYMPHOCYTES % (AUTO) 22 % (12-44); MEAN CORPUSCULAR HEMOGLOBIN 29 PG (25-34); MEAN CORPUSCULAR HGB CONC 34 G/DL (32-36); MEAN CORPUSCULAR VOLUME 87 FL (80-99); MEAN PLATELET VOLUME 10.1 FL (7.4-10.4); MONOCYTES # (AUTO) 0.6 X 10^3 (0.0-1.0); MONOCYTES % (AUTO) 13 % (0-12); NEUTROPHILS # (AUTO) 3.1 X 10^3 (1.8-7.8); NEUTROPHILS % (AUTO) 63 % (42-75); PLATELET COUNT 189 10^3/uL (130-400); RED CELL DISTRIBUTION WIDTH 13.6 % (10.0-14.5); WHITE BLOOD COUNT 4.9 10^3/uL (4.3-11.0)
[2018-07-16] MEDS ORDERED: RT-IPRATROPIUM (ATROVENT) 0.5MG/2.5ML AMP IH ONE ×2 (10:10→10:15)
[2018-07-16 10:11] LABS: BILIRUBIN,URINE NEGATIVE (NEGATIVE); CLARITY,URINE CLEAR; COLOR,URINE YELLOW; GLUCOSE, URINE (UA) NEGATIVE (NEGATIVE); KETONES,URINE NEGATIVE (NEGATIVE); LEUKOCYTE ESTERASE ,URINE NEGATIVE (NEGATIVE); NITRITE,URINE NEGATIVE (NEGATIVE); PH,URINE 6 (5-9); PROTEIN,URINE 1+ (NEGATIVE); UROBILINOGEN,URINE 1 MG/DL (NORMAL)
[2018-07-16 10:19] LABS: BACTERIA,URINE NEGATIVE /HPF; RBC,URINE 0-2 /HPF
[2018-07-16 10:24] LABS: PROTHROMBIN TIME PATIENT 13.1 SEC (12.2-14.7)
[2018-07-16 10:27] LABS: ALANINE AMINOTRANSFERASE 15 U/L (0-55); ALBUMIN 4.6 GM/DL (3.2-4.5); ALKALINE PHOSPHATASE 69 U/L (40-136); BILIRUBIN,TOTAL 0.3 MG/DL (0.1-1.0); BUN/CREATININE RATIO 12; CALCIUM 9.3 MG/DL (8.5-10.1); CARBON DIOXIDE 24 MMOL/L (21-32); CHLORIDE 98 MMOL/L (98-107); CREATININE SERUM 1.01 MG/DL (0.60-1.30); GFR ESTIMATED > 60; GLUCOSE 113 MG/DL (70-105); POTASSIUM 3.8 MMOL/L (3.6-5.0); SODIUM 131 MMOL/L (135-145); TOTAL PROTEIN 7.4 GM/DL (6.4-8.2)
--- NOTE | 2018-07-16 10:41 | NUR ---
pt denies pain and states he feels much better
--- NOTE | 2018-07-16 11:01 | Diagnostic Imaging Report ---
INDICATION: Shortness of breath COMPARISON: 01/30/2013 FINDINGS: Single view the chest demonstrates clear lungs bilaterally. The heart size is normal. There is no pneumothorax. Osseous structures are normal. IMPRESSION: No acute findings. Normal chest. Dictated by: Dictated on workstation # [id number]
[2018-07-16] MEDS ORDERED: PRD20T PO (11:21)
[2018-07-16] MEDS ORDERED: RT-ALBUINH INH (11:21)
[2018-07-16] MEDS ORDERED: predniSONE 20 MG TAB PO ONE (11:30)
--- NOTE | 2018-07-16 11:50 | NUR ---
PT IS ANXIOUS TO LEAVE AND DOES NOT WANT TO STAY IN THE HOSPITAL. PHYSICIAN NOTIFIED
[2018-07-16 12:17] VITALS: BP 156/77
== END 2018-07-16 12:17 | disposition home or self-care (01) ==
LOC: EDUNIT# 09:00 → ER 09:01
DX: J44.1 Chronic obstructive pulmonary disease with (acute) exacerbation (principal); F17.210 Nicotine dependence, cigarettes, uncomplicated; Z79.51 Long term (current) use of inhaled steroids; Z79.82 Long term (current) use of aspirin; Z79.02 Long term (current) use of antithrombotics/antiplatelets; Z79.52 Long term (current) use of systemic steroids
CPT/HCPCS: 36415; 71045; 80053; 81000; 83605; 85025; 85610; 85730; 87040; 87070; 87088; 87205; 87804; 93005; 94640

== ENCOUNTER 2019-11-19 10:56 | Emergency (ER) | payer MEDICARE, MEDICAID ==
[~2019-11-19] VITALS: Ht 172 cm; Wt 90.0 kg
[~2019-11-19 10:56] MED LIST changes: +CLOP75TA69 PO; +PRD20T PO; +RT-ALBUINH INH; +TMSL.4C PO
--- OUTSIDE RECORDS SUMMARY | 2019-11-19 11:00 | XMS REPORT | Continuity of Care Document ---
Author Organization Unknown Address Unknown Phone Unavailable Allergies Active Description Code Type Severity Reaction Onset Reported/Identified Relationship to Patient Clinical Status Yes No Known Drug Allergies [id number] Drug Allergy Unknown N/A 12/28/2012 Medications There is no data. Problems Date Dx Coded Attending Type Code Diagnosis Diagnosed By 12/28/2012 RICHARD QUINTANILLA DO Ot 441.4 ABDOM AORTIC ANEURYSM 12/28/2012 RICHARD QUINTANILLA DO Ot 574.20 CHOLELITHIASIS NOS 12/28/2012 RICHARD QUINTANILLA DO Ot 786.50 CHEST PAIN NOS 01/28/2013 DO MOMIN MD Ot 786. 50 CHEST PAIN NOS 01/30/2013 MARGIE OLMSTEAD MD Ot 305.1 TOBACCO USE DISORDER 01/30/2013 MARGIE OLMSTEAD MD Ot 401.9 HYPERTENSION NOS 01/30/2013 MARGIE OLMSTEAD MD Ot 413.9 ANGINA PECTORIS NEC/NOS 01/30/2013 MARGIE OLMSTEAD MD Ot 427.89 CARDIAC DYSRHYTHMIAS NEC 01/30/2013 MARGIE OLMSTEAD MD Ot 441.4 ABDOM AORTIC ANEURYSM 01/30/2013 MARGIE OLMSTEAD MD Ot 49 6 CHR AIRWAY OBSTRUCT NEC 01/30/2013 MARGIE OLMSTEAD MD Ot 553.1 UMBILICAL HERNIA 01/30/2013 MARGIE OLMSTEAD MD Ot 574.20 CHOLELITHIASIS NOS 01/30/2013 MARGIE OLMSTEAD MD Ot 724.5 BACKACHE NOS 01/30/2013 MARGIE OLMSTEAD MD Ot 786.50 CHEST PAIN NOS 01/30/2013 MARGIE OLMSTEAD MD Ot V17.3 FAM HX-ISCHEM HEART DIS 01/07/2014 RUBÉN BARNES MD Ot 401.9 HYPERTENSION NOS 01/07/2014 RUBÉN BARNES MD Ot 780.52 INSOMNIA, UNSPECIFIED 01/07/2014 RUBÉN BARNES MD Ot 784.0 HEADACHE 09/26/2014 ISHAN DAN, MARGIE Colin Ot 441.4 09/26/2014 ISHAN DAN, MARGIE Colin Ot 574.20 09/27/2015 ISHAN DAN, MARGIE Colin Ot 441.4 ABDOM AORTIC ANEURYSM 09/27/2015 ISHAN DAN, MARGIE Colin Ot 574.20 CHOLELITHIASIS NOS 10/01/2015 JA DO, CECILIA K Ot J44 .9 CHRONIC OBSTRUCTIVE PULMONARY DISEASE, U 10/17/2015 JA DO, CECILIA K Ot J44 .9 CHRONIC OBSTRUCTIVE PULMONARY DISEASE, U 10/29/2015 JA DO, CECILIA K Ot J44 .9 CHRONIC OBSTRUCTIVE PULMONARY DISEASE, U 08/26/2016 DEWAYNE LÓPEZ K Ot I10 ESSENTIAL (PRIMARY) HYPERTENSION 08/26/2016 DEWAYNE LÓPEZ K Ot I10 ESSENTIAL (PRIMARY) HYPERTENSION 08/26/2016 DEWAYNE LÓPEZ K Ot I10 ESSENTIAL (PRIMARY) HYPERTENSION 08/26/2016 BUCK LÓPEZTH K Ot I10 ESSENTIAL (PRIMARY) HYPERTENSION 08/26/2016 SHAVON HORAN DEWAYNE K Ot I10 ESSENTIAL (PRIMARY) HYPERTENSION 09/16/2016 CHEVY LÓPEZDITH K Ot I10 ESSENTIAL (PRIMARY) HYPERTENSION 09/16/2016 DEWAYNE LÓPEZ K Ot I25.10 ATHSCL HEART DISEASE OF [place] CORONARY 09/16/2016 DEWAYNE LÓPEZ K Ot I71.4 ABDOMINAL AORTIC ANEURYSM, WITHOUT RUPTU 09/16/2016 DEWAYNE LÓPEZ K Ot Z72.0 TOBACCO USE 10/01/2016 BUCK LÓPEZTH K Ot I10 ESSENTIAL (PRIMARY) HYPERTENSION 10/01/2016 BUCK LÓPEZTH K Ot I25.10 ATHSCL HEART DISEASE OF [place] CORONARY 10/01/2016 DEWAYNE LÓPEZ K Ot I71.4 ABDOMINAL AORTIC ANEURYSM, WITHOUT RUPTU 10/01/2016 DEWAYNE LÓPEZ K Ot Z72.0 TOBACCO USE 10/07/2016 MARIE DAN, DEEPTHI Shabazz Ot I71 .4 ABDOMINAL AORTIC ANEURYSM, WITHOUT RUPTU 10/14/2016 MARIE DAN, DEEPTHI Shabazz Ot I71 .4 ABDOMINAL AORTIC ANEURYSM, WITHOUT RUPTU 10/19/2016 MARIE DAN, DEEPTHI Shabazz Ot Z01.818 ENCOUNTER FOR OTHER PREPROCEDURAL EXAMIN 11/02/2016 DEEPTHI SALAZAR MD Ot Z01.818 ENCOUNTER FOR OTHER PREPROCEDURAL EXAMIN 11/21/2016 DEEPTHI SALAZAR MD Ot Z01.818 ENCOUNTER FOR OTHER PREPROCEDURAL EXAMIN 01/24/2017 MERRILL DAN, DO A Ot 786. 50 CHEST PAIN NOS 12/21/2017 Ot K43.2 INCI SIONAL HERNIA WITHOUT OBSTRUCTION OR 12/21/2017 Ot K43.9 VENT RAL HERNIA WITHOUT OBSTRUCTION OR GA 12/21/2017 Ot K80.20 RAMSEY CULUS OF GALLBLADDER W/O CHOLECYSTITI 12/21/2017 Ot Z98.890 OT HER SPECIFIED POSTPROCEDURAL STATES 12/30/2017 Ot K43.2 INCI SIONAL HERNIA WITHOUT OBSTRUCTION OR 12/30/2017 Ot K43.9 VENT RAL HERNIA WITHOUT OBSTRUCTION OR GA 12/30/2017 Ot K80.20 RAMSEY CULUS OF GALLBLADDER W/O CHOLECYSTITI 12/30/2017 Ot Z98.890 OT HER SPECIFIED POSTPROCEDURAL STATES 02/01/2018 ISHAN DAN, MARGIE Colin Ot 441.4 ABDOM AORTIC ANEURYSM 02/01/2018 ISHAN DAN, MARGIE Colin Ot 574.20 CHOLELITHIASIS NOS 02/01/2018 CECILIA PERES DO Ot J44 .9 CHRONIC OBSTRUCTIVE PULMONARY DISEASE, U 02/01/2018 DEWAYNE LÓPEZ Ot I10 ESSENTIAL (PRIMARY) HYPERTENSION 02/01/2018 DEWAYNE LÓPEZ Ot I25.10 ATHSCL HEART DISEASE OF [place] CORONARY 02/01/2018 DEWAYNE LÓPEZ Ot I71.4 ABDOMINAL AORTIC ANEURYSM, WITHOUT RUPTU 02/01/2018 DEWAYNE LÓPEZ Ot Z72.0 TOBACCO USE 02/01/2018 MARIE DAN, DEEPTHI Shabazz Ot Z01.818 ENCOUNTER FOR OTHER PREPROCEDURAL EXAMIN 02/01/2018 DEEPTHI SALAZAR MD Ot Z01.818 ENCOUNTER FOR OTHER PREPROCEDURAL EXAMIN 02/01/2018 DEEPTHI SALAZAR MD Ot I71 .4 ABDOMINAL AORTIC ANEURYSM, WITHOUT RUPTU 02/01/2018 Ot K43.2 INCI SIONAL HERNIA WITHOUT OBSTRUCTION OR 02/01/2018 Ot K43.9 VENT RAL HERNIA WITHOUT OBSTRUCTION OR GA 02/01/2018 Ot K80.20 RAMSEY CULUS OF GALLBLADDER W/O CHOLECYSTITI 02/01/2018 Ot Z98.890 OT HER SPECIFIED POSTPROCEDURAL STATES 02/04/2018 ALFREDA HASSAN MD Ot I10 ESSENTIAL (PRIMARY) HYPERTENSION 02/04/2018 ALFREDA HASSAN MD Ot I71. 4 ABDOMINAL AORTIC ANEURYSM, WITHOUT RUPTU 02/04/2018 ALFREDA HASSAN MD Ot R06. 02 SHORTNESS OF BREATH 02/04/2018 ALFREDA HASSAN MD Ot Z72. 0 TOBACCO USE 02/04/2018 ALFREDA HASSAN MD Ot Z82. 49 FAMILY HX OF ISCHEM HEART DIS AND OTH DI 02/05/2018 ALFREDA HASSAN MD Ot I10 ESSENTIAL (PRIMARY) HYPERTENSION 02/05/2018 ALFREDA HASSAN MD Ot I71. 4 ABDOMINAL AORTIC ANEURYSM, WITHOUT RUPTU 02/05/2018 ALFREDA HASSAN MD Ot R06. 02 SHORTNESS OF BREATH 02/05/2018 ALFREDA HASSAN MD Ot Z72. 0 TOBACCO USE 02/05/2018 ALFREDA HASSAN MD Ot Z82. 49 FAMILY HX OF I[place]HE[place] HEART DIS AND OTH DI 02/08/2018 ALFREDA HASSAN MD Ot I10 ESSENTIAL (PRIMARY) HYPERTENSION 02/08/2018 ALFREDA HASSAN MD Ot I71. 4 ABDOMINAL AORTIC ANEURYSM, WITHOUT RUPTU 02/08/2018 ALFREDA HASSAN MD Ot R06. 02 SHORTNESS OF BREATH 02/08/2018 ALFREDA HASSAN MD Ot Z72. 0 TOBACCO USE 02/08/2018 ALFREDA HASSAN MD Ot Z82. 49 FAMILY HX OF ISCHE[place] HEART DIS AND OTH DI 02/22/2018 ALFREDA HASSAN MD Ot I10 ESSENTIAL (PRIMARY) HYPERTENSION 02/22/2018 ALFREDA HASSAN MD Ot I71. 4 ABDOMINAL AORTIC ANEURYSM, WITHOUT RUPTU 02/22/2018 ALFREDA HASSAN MD Ot R06. 02 SHORTNESS OF BREATH 02/22/2018 ALFREDA HASSAN MD Ot Z72. 0 TOBACCO USE 02/22/2018 ALFREDA HASSAN MD Ot Z82. 49 FAMILY HX OF ISCHE[place] HEART DIS AND OTH DI 02/22/2018 ALFREDA HASSAN MD Ot I10 ESSENTIAL (PRIMARY) HYPERTENSION 02/22/2018 ALFREDA HASSAN MD Ot I71. 4 ABDOMINAL AORTIC ANEURYSM, WITHOUT RUPTU 02/22/2018 ALFREDA HASSAN MD Ot R06. 02 SHORTNESS OF BREATH 02/22/2018 ALFREDA HASSAN MD Ot Z72. 0 TOBACCO USE 02/22/2018 ALFREDA HASSAN MD Ot Z82. 49 FAMILY HX OF ISCHE[place] HEART DIS AND OTH DI 03/03/2018 ALFREDA HSASAN MD Ot I10 ESSENTIAL (PRIMARY) HYPERTENSION 03/03/2018 ALFREDA HASSAN MD Ot I71. 4 ABDOMINAL AORTIC ANEURYSM, WITHOUT RUPTU 03/03/2018 ALFREDA HASSAN MD Ot R06. 02 SHORTNESS OF BREATH 03/03/2018 ALFREDA HASSAN MD Ot Z72. 0 TOBACCO USE 03/03/2018 ALFREDA HASSAN MD Ot Z82. 49 FAMILY HX OF ISCHE[place] HEART DIS AND OTH DI 03/03/2018 ALFREDA HASSAN MD Ot I10 ESSENTIAL (PRIMARY) HYPERTENSION 03/03/2018 ALFREDA HASSAN MD Ot I71. 4 ABDOMINAL AORTIC ANEURYSM, WITHOUT RUPTU 03/03/2018 ALFREDA HASSAN MD Ot R06. 02 SHORTNESS OF BREATH 03/03/2018 ALFREDA HASSAN MD Ot Z72. 0 TOBACCO USE 03/03/2018 ALFREDA HASSAN MD Ot Z82. 49 FAMILY HX OF ISCHEM HEART DIS AND OTH DI 07/16/2018 LEXY BARRON MD Ot F17.210 NICOTINE DEPENDENCE, CIGARETTES, UNCOMPL 07/16/2018 LEXY BARRON MD Ot J44.1 CHRONIC OBSTRUCTIVE PULMONARY DISEASE W 07/16/2018 LEXY BARRON MD Ot R06.02 SHORTNESS OF BREATH 07/16/2018 LEXY BARRON MD Ot Z79.02 WINDOW MAKER (CURRENT) USE OF ANTITHROMBOTI 07/16/2018 LEXY BARRON MD Ot Z79.51 WINDOW MAKER (CURRENT) USE OF INHALED STERO 07/16/2018 LEXY BARRON MD Ot Z79.52 DETENTION (CURRENT) USE OF SYSTEMIC STER 07/16/2018 LEXY BARRON MD Ot Z79.82 WINDOW MAKER (CURRENT) USE OF ASPIRIN 07/18/2018 LEXY BARRON MD Ot F17.210 NICOTINE DEPENDENCE, CIGARETTES, UNCOMPL 07/18/2018 LEXY BARRON MD, Ot J44.1 CHRONIC OBSTRUCTIVE PULMONARY DISEASE W 07/18/2018 LEXY BARRON MD Ot R06.02 SHORTNESS OF BREATH 07/18/2018 LEXY BARRON MD Ot Z79.02 DETENTION (CURRENT) USE OF ANTITHROMBOTI 07/18/2018 LEXY BARRON MD Ot Z79.51 DETENTION (CURRENT) USE OF INHALED STERO 07/18/2018 LEXY BARRON MD, Ot Z79.52 WINDOW MAKER (CURRENT) USE OF SYSTEMIC STER 07/18/2018 LEXY BARRON MD Ot Z79.82 WINDOW MAKER (CURRENT) USE OF ASPIRIN Procedures There is no data. Results Test Result Range Influenza virus A and B antigen detectio n - 07/16/18 09:28 FLU RESULT NEGATIVE FOR INFLUENZA A AND B ANTIGENS BY [facility] Bacterial blood culture - 07/16/18 09:50 Bacterial blood culture [facility] Complete blood count (CBC) with automate d white blood cell (WBC) differential - 07/16/18 09:59 Blood leukocytes automated count (number/volume) 4.9 10*3/uL 4.3-11.0 Blood erythrocytes automated count (number/volume) 4.71 10*6/uL 4.35-5.85 Venous blood hemoglobin measurement (mass/volume) 13.7 g/dL 13.3-17.7 Blood hematocrit (volume fraction) 41 % 40-54 Automated erythrocyte mean corpuscular volume 87 [ foz_us] 80-99 Automated erythrocyte mean corpuscular h emoglobin (mass per erythrocyte) 29 pg 25-34 Automated erythrocyte mean corpuscular h emoglobin concentration measurement (mass/volume) 34 g/dL 32-36 Automated erythrocyte distribution width ratio 13. 6 % 10.0- 14.5 Automated blood platelet count (count/volume) 189 10*3/uL 130-400 Automated blood platelet mean volume measurement 10.1 [foz_us] 7.4-10.4 Automated blood neutrophils/100 leukocytes 63 % 42-75 Automated blood lymphocytes/100 leukocytes 22 % 12-44 Blood monocytes/100 leukocytes 13 % 0-12 Automated blood eosinophils/100 leukocytes 1 % 0-10 Automated blood basophils/100 leukocytes 1 % 0-10 Blood neutrophils automated count (number/volume) 3.1 10*3 1.8-7.8 Blood lymphocytes automated count (number/volume) 1.1 10*3 1.0-4.0 Blood monocytes automated count (number/volume) 0. 6 10*3 0.0-1.0 Automated eosinophil count 0.1 10*3/uL 0 .0-0.3 Automated blood basophil count (count/volume) 0.0 10*3/uL 0.0-0.1 Blood lactic acid measurement (moles/vol ume) - 07/16/18 09:59 Blood lactic acid measurement (moles/volume) 1.52 mmol/L 0.50-2.00 PT panel in platelet poor plasma by coag ulation assay - 07/16/18 09:59 Prothrombin time (PT) in platelet poor plasma by coagu lation assay 13.1 s 12.2-14.7 INR in platelet poor plasma or blood by coagulation as say 1.0 0.8-1.4 Activated partial thromboplastin time (a PTT) in platelet poor plasma bycoagulation assay - 07/16/18 09:59 Activated partial thromboplastin time (a PTT) in platelet poor plasma bycoagulation assay 31 s 24-35 Comprehensive metabolic panel - 07/16/18 09:59 Serum or plasma sodium measurement (moles/volume) 131 mmol/L 135-145 Serum or plasma potassium measurement (moles/volume) 3.8 mmol/L 3.6-5.0 Serum or plasma chloride measurement (moles/volume) 98 mmol/L 98-107 Carbon dioxide 24 mmol/L 21-32 Serum or plasma anion gap determination (moles/volume) 9 mmol/L 5-14 Serum or plasma urea nitrogen measurement (mass/volume ) 12 mg/dL 7-18 Serum or plasma creatinine measurement (mass/volume) 1.01 mg/dL 0.60-1.30 Serum or plasma urea nitrogen/creatinine mass ratio 12 NRG Serum or plasma creatinine measurement w ith calculation of estimated glomerular filtration rate > NRG Serum or plasma glucose measurement (mass/volume) 113 mg/dL 70-105 Serum or plasma calcium measurement (mass/volume) 9.3 mg/dL 8.5-10.1 Serum or plasma total bilirubin measurement (mass/volu me) 0.3 mg/dL 0.1-1.0 Serum or plasma alkaline phosphatase priyank surement (enzymatic activity/volume) 69 U/L 40-136 Serum or plasma aspartate aminotransfera se measurement (enzymatic activity/volume) 24 U/L 5-34 Serum or plasma alanine aminotransferase measurement (enzymatic activity/volume) 15 U/L 0-55 Serum or plasma protein measurement (mass/volume) 7.4 g/dL 6.4-8.2 Serum or plasma albumin measurement (mass/volume) 4.6 g/dL 3.2-4.5 Bacterial blood culture - 07/16/18 09:59 Bacterial blood culture NG NRG Complete urinalysis with reflex to cultu re - 07/16/18 10:04 Urine color determination YELLOW NRG Urine clarity determination CLEAR NR G Urine pH measurement by test strip 6 5-9 Specific gravity of urine by test strip 1.020 1.016-1.022 Urine protein assay by test strip, semi-quantitative 1+ NEGATIVE Urine glucose detection by automated test strip NE GATIVE NEGATIVE Erythrocytes detection in urine sediment by light micr oscopy 1+ NEGATIVE Urine ketones detection by automated test strip NE GATIVE NEGATIVE Urine nitrite detection by test strip NEGATIVE NEGATIVE Urine total bilirubin detection by test strip NEGA TIVE NEGATIVE Urine urobilinogen measurement by automated test strip (mass/volume) 1 mg/dL NORMAL Urine leukocyte esterase detection by dipstick NEG ATIVE NEGATIVE Automated urine sediment erythrocyte cou nt by microscopy (number/high power field) [HPF] NRG Automated urine sediment leukocyte count by microscopy (number/high power field) NONE NRG Bacteria detection in urine sediment by light microsco py NEGATIVE NRG Squamous epithelial cells detection in u rine sediment by light microscopy NONE NRG Crystals detection in urine sediment by light microsco py NONE NRG Casts detection in urine sediment by light microscopy NONE NRG Mucus detection in urine sediment by light microscopy SMALL NRG Complete urinalysis with reflex to culture CULTURE PENDING NRG Bacterial urine culture - 07/16/18 10:04 Bacterial urine culture NG NRG Sputum Gram stain - 07/16/18 10:08 Sputum Gram stain Mixed Bacterial Karlene NRG Bacterial sputum culture - 07/16/18 10:0 8 QUANTITY OF GROWTH . NRG Bacterial sputum culture USUAL RESP NRG Encounters ACCT No. Visit Date/Time Discharge Status Pt. Type Provider Facility Loc./Unit Complaint [id number] 07/16/2018 09:01:00 019 12:17:00 DIS Emergency LEXY BARRON MD [facility] ER SOB [id number] 02/02/2018 11:46:00 23:59:59 CLS Outpatient ALFREDA HASSAN MD [facility] CARD ABDOMINAL AORTIC ANEURY SM [id number] 02/01/2018 09:55:00 018 23:59:59 CLS Outpatient ALFREDA HASSAN MD [facility] CARD ABDOMINAL AORTIC ANEURY SM [id number] 09/14/2016 07:10:00 017 23:59:59 CLS Outpatient DEEPTHI SALAZAR MD [facility] CARD Z01.818 PREOP OP CLEARA NCE [id number] 09/09/2016 11:18:00 017 23:59:59 CLS Outpatient DEEPTHI SALAZAR MD [facility] CARD Z01.818 PRE OP CLEARANC E [id number] 09/04/2016 14:51:00 017 23:59:59 CLS Outpatient DEEPTHI SALAZAR MD [facility] RT Z01.818 PREOP CLEARANCE [id number] 08/26/2016 09:02:00 017 23:59:59 CLS Outpatient DEB LÓPEZ [facility] RAD I71.4,I25.1 0,I10 [id number] 09/27/2015 14:15:00 016 23:59:59 CLS Outpatient CECILIA PERES DO [facility] RT COPD [id number] 01/07/2014 19:11:00 014 20:41:00 DIS Emergency RUBÉN BARNES MD [facility] ER HEADACHE [id number] 01/28/2013 23:11:00 11:05:00 DIS Inpatient MARGIE OLMSTEAD MD [facility] ICU CHEST PAIN [id number] 01/28/2013 19:54:00 23:59:59 CLS Emergency DO MOMIN MD [facility] ER CHEST PAIN [id number] 12/30/2012 07:31:00 23:59:59 CLS Outpatient MARGIE OLMSTEAD MD [facility] RAD AAA [id number] 12/28/2012 12:50:00 17:55:00 DIS Emergency RICHARD QUINTANILLA DO a [facility] ER COUGH [id number] 12/01/2017 10:43:00 Document Registration
[2019-11-19 11:03] VITALS: BP 152/79
--- NOTE | 2019-11-19 11:11 | ED Integumentary General ---
General Chief Complaint: Bite-Animal/Human/Insect Stated Complaint: WASP STING L EAR, R ARM Nursing Triage Note: ARRIVED VIA AMB WITHOUT DIFFICULTY TO ROOM 06. 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 Source: patient Exam Limitations: no limitations History of Present Illness Date Seen by Provider: Nov 19, 2019 Time Seen by Provider: 10:55 Initial Comments Patient presents ER by private conveyance with chief complaint of 30 minutes prior to arrival he was stung by a wasp on his right bicep and his left ear. He does not have a known history of anaphylaxis. He just wanted make sure he does not have a reaction to it and pass out before he could get help so he came up to be checked out. He has no significant pain, difficulty swallowing fluids or breathing. No swollen tongue. Allergies and Home Medications Allergies Coded Allergies: No Known Drug Allergies (Unverified , 12/28/12) Home Medications Albuterol Sulfate 1 Puff Puff, 2 PUFF INH Q4H PRN for WHEEZING 1 PUFF = 90 MCG Prescribed by: LEXY BARRON on 07/16/18 1121 Aspirin 81 Mg Tabec, 81 MG PO DAILY, (Reported) Clopidogrel Bisulfate 75 Mg Tablet, 75 MG PO DAILY, (Reported) Lisinopril 10 Mg Tab, 10 MG PO DAILY, (Reported) Metoprolol Succinate 25 Mg Tab.sr.24h, 25 MG PO DAILY, (Reported) Pantoprazole Sodium 40 Mg Tablet.dr, 40 MG PO DAILY, (Reported) Prednisone 20 Mg Tab, 40 MG PO DAILY Prescribed by: LEXY BARRON on 07/16/18 1121 Patient Home Medication List Home Medication List Reviewed: Yes Review of Systems Review of Systems Constitutional: No chills, No diaphoresis EENTM: No ear pain, No eye pain Respiratory: No cough, No phlegm Cardiovascular: No chest pain, No syncope Gastrointestinal: No abdominal pain, No constipation, No nausea, No vomiting Genitourinary: No discharge, No dysuria Musculoskeletal: No back pain, No joint pain All Other Systems Reviewed Negative Unless Noted: Yes Past Snntqjr-Ddicul-Ihcfze Hx Patient Social History Alcohol Use: Denies Use Recreational Drug Use: No Smoking Status: Current Everyday Smoker Type Used: Cigarettes Recent Foreign Travel: No Contact w/Someone Who Travel: No Recent Infectious Disease Expo: No Recent Hopitalizations: No Immunizations Up To Date Tetanus Booster (TDap): Unknown Date of Pneumonia Vaccine: Jun 25, 2011 Seasonal Allergies Seasonal Allergies: No Past Medical History Surgeries: Yes (CYST REMOVED FROM BACK, aneurysm) Respiratory: Yes COPD Cardiac: Yes Aneurysm Neurological: No Gastrointestinal: No Musculoskeletal: No Endocrine: No Cancer: No Psychosocial: No Integumentary: No Blood Disorders: No Physical Exam Vital Signs Vital Signs - First Documented 11/19/19 11:03 Temp 37.0 Pulse 73 Resp 16 B/P (MAP) 152/79 (103) Pulse Ox 96 O2 Delivery Room Air Capillary Refill : Less Than 3 Seconds General Appearance: WD/WN, no apparent distress HEENT: PERRL/EOMI, normal ENT inspection, pharynx normal Neck: full range of motion, supple, normal inspection Cardiovascular: normal peripheral pulses, regular rate, rhythm Respiratory: lungs clear, normal breath sounds, no respiratory distress, no accessory muscle use Neurologic/Psychiatric: alert, normal mood/affect, oriented x 3 Skin: other (insignificant wasp sting on the right bicep anteriorly. Swelling and erythema of the left pinna without sting or or venom sack in place.) Progress/Results/Core Measures Results/Orders My Orders Orders - RANDALL SHIPMAN Loratadine Tablet (Claritin Tablet) (11/19/19 11:15) Diphenhydramine Tablet (Benadryl Tablet) (11/19/19 11:15) Acetaminophen Tablet (Tylenol Tablet) (11/19/19 11:15) Vital Signs/I&O 11/19/19 11:03 Temp 37.0 Pulse 73 Resp 16 B/P (MAP) 152/79 (103) Pulse Ox 96 O2 Delivery Room Air Blood Pressure Mean: 103 Progress Progress Note : Time: 11:00 Progress Note No evidence of anaphylaxis. We'll give him some Tylenol, Benadryl loratadine and instruct him to do conservative management. Return precautions were discussed. Departure Impression Primary Impression: Accidental wasp sting Disposition: 01 HOME, SELF-CARE Condition: Stable Departure-Patient Inst. Decision time for Depature: 11:09 Referrals: DEANNA FRIAS MD (PCP/Family) Primary Care Physician Patient Instructions: Insect Bites and Stings Add. Discharge Instructions: Clean the wound with regular soap and water. Calamine lotion applied directly over the sting to help reduce the itching. Loratadine/Claritin or cetirizine/Zyrtec one tablet daily as necessary for itching burning or swelling. Benadryl 1-2 tablets every 6 hours as necessary for itching, burning or swelling. Ice packs can be helpful for pain applied directly over the site. Return to the ER promptly if you begin to experience swollen tongue difficulty swallowing fluids or breathing. All discharge instructions reviewed with patient and/or family. Voiced understanding. RANDALL SHIPMAN Nov 19, 2019 11:11
[2019-11-19] MEDS ORDERED: LORATADINE (CLARITIN) 10 MG TAB PO ONE (11:15)
[2019-11-19] MEDS ORDERED: diphenhydrAMINE 25 MG TAB (BENADRYL) PO ONE (11:15)
[2019-11-19] MEDS ORDERED: ACETAMINOPHEN 500 MG TAB (TYLENOL) PO ONE (11:15)
== END 2019-11-19 11:16 | disposition home or self-care (01) ==
LOC: EDUNIT# 10:56 → ER 10:57
DX: T63.461A Toxic effect of venom of wasps, accidental (unintentional), initial encounter (principal); J44.9 Chronic obstructive pulmonary disease, unspecified; Z79.82 Long term (current) use of aspirin; Z79.02 Long term (current) use of antithrombotics/antiplatelets; Z79.52 Long term (current) use of systemic steroids
CPT/HCPCS: 99283

== ENCOUNTER 2021-05-30 20:03 | Emergency (ER) | payer MEDICARE, MEDICAID ==
[~2021-05-30] VITALS: Ht 172 cm; Wt 84.4 kg
--- NOTE | 2021-05-30 20:13 | ED General ---
General Chief Complaint: Dizziness/Syncope Stated Complaint: DIZZY, N/V Source of Information: Patient Exam Limitations: No Limitations History of Present Illness Date Seen by Provider: May 30, 2021 Time Seen by Provider: 20:10 Initial Comments To ER by EMS with reports of dizziness and nausea/vomiting. At about 6 PM while laying in bed he developed sudden onset dizziness. He got up and went to his recliner and then began noticing nausea/dry heaving. He states that if he sits perfectly still the dizziness goes away but if he moves at all the dizziness recurs. Timing/Duration: 1/2 Hour Severity: Moderate Associated Systoms: Denies Symptoms Allergies and Home Medications Allergies Coded Allergies: No Known Drug Allergies (Unverified , 12/28/12) Patient Home Medication List Home Medication List Reviewed: Yes Albuterol Sulfate (Ventolin Hfa) 1 Puff Puff, 2 PUFF INH Q4H PRN for WHEEZING Prescribed by: LEXY BARRON on 07/16/18 1121 Aspirin (Aspirin Ec 81 Mg) 81 Mg Tabec, 81 MG PO DAILY, (Reported) Entered as Reported by: CHEN ARNDT on 01/30/13 1052 Clopidogrel Bisulfate (Plavix) 75 Mg Tablet, 75 MG PO DAILY, (Reported) Entered as Reported by: AYLA EDLGADILLO on 07/16/18 0940 Lisinopril (Zestril) 10 Mg Tab, 10 MG PO DAILY, (Reported) Entered as Reported by: CHEN ARNDT on 01/30/13 1052 Metoprolol Succinate (Toprol Xl 25MG) 25 Mg Tab.sr.24h, 25 MG PO DAILY, (Reported) Entered as Reported by: CHEN ARNDT on 01/30/13 1052 Pantoprazole Sodium (Protonix) 40 Mg Tablet.dr, 40 MG PO DAILY, (Reported) Entered as Reported by: CHEN ARNDT on 01/30/13 1052 Prednisone (Prednisone) 20 Mg Tab, 40 MG PO DAILY Prescribed by: LEXY BARRON on 07/16/18 1121 Tamsulosin HCl (Flomax) 0.4 Mg Cap, 0.4 MG PO, (Reported) Entered as Reported by: AYLA DELGADILLO on 07/16/18 0941 Review of Systems Review of Systems Constitutional: see HPI EENTM: see HPI Respiratory: no symptoms reported Cardiovascular: no symptoms reported Genitourinary: no symptoms reported Musculoskeletal: no symptoms reported Skin: no symptoms reported Psychiatric/Neurological: No Symptoms Reported Hematologic/Lymphatic: No Symptoms Reported Immunological/Allergic: no symptoms reported Past Mecwslp-Zrnejd-Mngikd Hx Patient Social History Tobacco Use?: Yes Substance use?: No Alcohol Use?: No Pt feels they are or have been: No Immunizations Up To Date Tetanus Booster (TDap): Unknown Seasonal Allergies Seasonal Allergies: No Past Medical History Surgery/Hospitalization HX: back cyst, aneurysm, copd, htn, gerd Surgeries: Yes (CYST REMOVED FROM BACK, aneurysm) Respiratory: Yes COPD Cardiac: Yes Aneurysm Neurological: No Gastrointestinal: No Musculoskeletal: No Endocrine: No Cancer: No Psychosocial: No Integumentary: No Blood Disorders: No Physical Exam Vital Signs Vital Signs - First Documented 05/30/21 20:03 Temp 36.5 Pulse 62 Resp 16 B/P (MAP) 146/64 (91) Pulse Ox 95 O2 Delivery Room Air Capillary Refill : Height, Weight, BMI Height: 5'8.00" Weight: 200lbs. 5.0oz. 90.541998zg; 30.00 BMI Method:Stated General Appearance: No Apparent Distress, WD/WN, Other (Alert and oriented very talkative pleasant conversational. Reports that he is not dizzy now or nause ous. States that he just got scared because of the intensity of it.) Eyes: Bilateral Eye Normal Inspection, Bilateral Eye PERRL, Bilateral Eye EOMI HEENT: PERRL/EOMI, TMs Normal, Normal ENT Inspection Neck: Full Range of Motion, Normal Inspection Respiratory: No Accessory Muscle Use, No Respiratory Distress Cardiovascular: Regular Rate, Rhythm, Normal Peripheral Pulses Gastrointestinal: Normal Bowel Sounds, Non Tender, Soft Extremity: Normal Capillary Refill, Normal Inspection Neurologic/Psychiatric: Alert, Oriented x3 Skin: Normal Color, Warm/Dry Progress/Results/Core Measures Suspected Sepsis SIRS Temperature: Pulse: Respiratory Rate: Laboratory Tests 05/30/21 20:09: White Blood Count 9.5 Blood Pressure / Mean: Laboratory Tests 05/30/21 20:09: Creatinine 0.88, Platelet Count 203, Total Bilirubin 0.4 Results/Orders Lab Results Laboratory Tests Test 05/30/21 20:09 Range/Units White Blood Count 9.5 4.3-11.0 10^3/uL Red Blood Count 4.48 4.30-5.52 10^6/uL Hemoglobin 13.3 13.3-17.7 g/dL Hematocrit 40 40-54 % Mean Corpuscular Volume 88 80-99 fL Mean Corpuscular Hemoglobin 30 25-34 pg Mean Corpuscular Hemoglobin Concent 34 32-36 g/dL Red Cell Distribution Width 13.4 10.0-14.5 % Platelet Count 203 130-400 10^3/uL Mean Platelet Volume 9.9 9.0-12.2 fL Immature Granulocyte % (Auto) 0 % Neutrophils (%) (Auto) 56 42-75 % Lymphocytes (%) (Auto) 31 12-44 % Monocytes (%) (Auto) 9 0-12 % Eosinophils (%) (Auto) 3 0-10 % Basophils (%) (Auto) 1 0-10 % Neutrophils # (Auto) 5.3 1.8-7.8 10^3/uL Lymphocytes # (Auto) 3.0 1.0-4.0 10^3/uL Monocytes # (Auto) 0.9 0.0-1.0 10^3/uL Eosinophils # (Auto) 0.3 0.0-0.3 10^3/uL Basophils # (Auto) 0.1 0.0-0.1 10^3/uL Immature Granulocyte # (Auto) 0.0 0.0-0.1 10^3/uL Sodium Level 137 135-145 MMOL/L Potassium Level 4.0 3.6-5.0 MMOL/L Chloride Level 103 98-107 MMOL/L Carbon Dioxide Level 21 21-32 MMOL/L Anion Gap 13 5-14 MMOL/L Blood Urea Nitrogen 12 7-18 MG/DL Creatinine 0.88 0.60-1.30 MG/DL Estimat Glomerular Filtration Rate 89 BUN/Creatinine Ratio 14 Glucose Level 116 H 70-105 MG/DL Calcium Level 9.0 8.5-10.1 MG/DL Corrected Calcium 8.8 8.5-10.1 MG/DL Total Bilirubin 0.4 0.1-1.0 MG/DL Aspartate Amino Transf (AST/SGOT) 17 5-34 U/L Alanine Aminotransferase (ALT/SGPT) 20 0-55 U/L Alkaline Phosphatase 59 40-136 U/L Total Protein 6.9 6.4-8.2 GM/DL Albumin 4.2 3.2-4.5 GM/DL My Orders Orders - ANIKA SRINIVASAN APRN Cbc With Automated Diff (05/30/21 20:09) Comprehensive Metabolic Panel (05/30/21 20:09) Meclizine Tablet (Antivert Tablet) (05/30/21 20:15) Ondansetron Injection (Zofran Injectio (05/30/21 20:15) Ed Iv/Invasive Line Start (05/30/21 20:09) Medications Given in ED Current Medications Medications Dose Ordered Sig/Eunice Route Start Time Stop Time Status Last Admin Dose Admin Meclizine HCl 50 mg ONCE ONCE PO 05/30/21 20:15 05/30/21 20:16 DC 05/30/21 20:13 50 MG Ondansetron HCl 8 mg ONCE ONCE IVP 05/30/21 20:15 05/30/21 20:16 DC 05/30/21 20:13 8 MG Vital Signs/I&O 05/30/21 20:03 Temp 36.5 Pulse 62 Resp 16 B/P (MAP) 146/64 (91) Pulse Ox 95 O2 Delivery Room Air Capillary Refill : Departure Impression Primary Impression: Vertigo Disposition: HOME, SELF-CARE Condition: Stable Departure-Patient Inst. Decision time for Depature: 20:44 Referrals: DEANNA FRIAS MD (PCP/Family) Primary Care Physician Patient Instructions: Vertigo ED Add. Discharge Instructions: 1. Use the nausea medication as directed. Return to ER for any concerns. Follow-up with your doctor next week. All discharge instructions reviewed with patient and/or family. Voiced understanding. ANIKA SRINIVASAN APRN May 30, 2021 20:13
[2021-05-30] MEDS ORDERED: MECLIZINE 25 MG (ANTIVERT) TAB PO ONE (20:15)
[2021-05-30] MEDS ORDERED: ONDANSETRON 4 MG/2 ML (SDV) Z0FRAN IVP ONE (20:15)
[2021-05-30 20:16] LABS: BASOPHILS # (AUTO) 0.1 10^3/uL (0.0-0.1); BASOPHILS % (AUTO) 1 % (0-10); EOSINOPHILS # (AUTO) 0.3 10^3/uL (0.0-0.3); EOSINOPHILS % (AUTO) 3 % (0-10); HEMATOCRIT 40 % (40-54); HEMOGLOBIN 13.3 g/dL (13.3-17.7); LYMPHOCYTES % (AUTO) 31 % (12-44); MEAN CORPUSCULAR HEMOGLOBIN 30 pg (25-34); MEAN CORPUSCULAR HGB CONC 34 g/dL (32-36); MEAN CORPUSCULAR VOLUME 88 fL (80-99); MEAN PLATELET VOLUME 9.9 fL (9.0-12.2); MONOCYTES # (AUTO) 0.9 10^3/uL (0.0-1.0); MONOCYTES % (AUTO) 9 % (0-12); NEUTROPHILS # (AUTO) 5.3 10^3/uL (1.8-7.8); NEUTROPHILS % (AUTO) 56 % (42-75); PLATELET COUNT 203 10^3/uL (130-400); WHITE BLOOD COUNT 9.5 10^3/uL (4.3-11.0)
[2021-05-30 20:24] LABS: ALBUMIN 4.2 GM/DL (3.2-4.5)
[2021-05-30 20:26] LABS: TOTAL PROTEIN 6.9 GM/DL (6.4-8.2)
[2021-05-30 20:28] LABS: BILIRUBIN,TOTAL 0.4 MG/DL (0.1-1.0)
[2021-05-30 20:30] LABS: CREATININE SERUM 0.88 MG/DL (0.60-1.30)
[2021-05-30 20:51] VITALS: BP 120/58
== END 2021-05-30 20:53 | disposition home or self-care (01) ==
LOC: EDUNIT# 20:03 → ER 20:05
DX: R42 Dizziness and giddiness (principal); J44.9 Chronic obstructive pulmonary disease, unspecified; I10 Essential (primary) hypertension; K21.9 Gastro-esophageal reflux disease without esophagitis; Z72.0 Tobacco use; Z79.82 Long term (current) use of aspirin; Z79.01 Long term (current) use of anticoagulants
CPT/HCPCS: 36415; 80053; 85025

== ENCOUNTER → 2021-10-07 | Outpatient (CLI) | payer MEDICARE, MEDICAID ==
--- NOTE | 2021-10-07 10:28 | Diagnostic Imaging Report ---
TIME OF EXAM: 10/07/2021 9:10 AM REASON FOR EXAM: Lung cancer screening. [id number] smoking history. COMPARISON: 12/28/2012. TECHNIQUE: Low Dose CT helical images obtained through the chest. Sagittal and coronal reformats were obtained and reviewed. Dose reduction techniques were utilized. CTDI vol: 2.22 mGy FINDINGS: Nodules: -- A) 4] mm, indeterminate noncalcified solid left lower lobe nodule (image 93, series 2.) Lungs: Lung volumes are normal. No significant emphysema or fibrosis is present. There is no appreciable bronchiectasis. No pulmonary mass or consolidation is present. No central endoluminal airway lesion is seen. Heart and Mediastinum: Heart size is within normal limits. Small amount of coronary calcifications are present. Aortic atherosclerosis is present without aneurysm. No pericardial effusion is present. No axillary, supraclavicular, mediastinal, internal mammary, or hilar adenopathy is present by CT size criteria. Normal size and attenuation of the visualized thyroid gland. Pleura: Normal pleural spaces. No effusion or pneumothorax. No pleural nodularity or mass. Abdomen: Cholelithiasis is noted without CT evidence of acute cholecystitis. A ventral hernia is seen in the midline of the upper abdomen with loops of transverse colon protruding through the defect. Bones and soft tissues: Regional skeletal and soft tissue structures are age-appropriate. IMPRESSION: 1. Nodule in the left lower lobe measuring 0.4 cm. Based on size criteria follow-up with low-dose chest CT is recommended in 6 months to ensure stability. 2. No thoracic lymphadenopathy. 3. Cholelithiasis without evidence of acute cholecystitis. 4. Ventral hernia in the midline of the upper abdomen with loops of transverse colon within the hernia sac. Consider dedicated CT of the abdomen and pelvis to further evaluate. Result code: Category 3: Probably Benign Follow up: 6 month LDCT Dictated by: Dictated on workstation # [id number]
== END ==
LOC: RAD 09:15
PROVIDERS: ATTEND Internal Medicine
DX: Z12.2 Encounter for screening for malignant neoplasm of respiratory organs (principal); R91.1 Solitary pulmonary nodule; K80.20 Calculus of gallbladder without cholecystitis without obstruction; K43.9 Ventral hernia without obstruction or gangrene; Z87.891 Personal history of nicotine dependence
CPT/HCPCS: 71271

== ENCOUNTER → 2021-12-09 | Outpatient (CLI) | payer MEDICARE, MEDICAID | LOC: CARD 09:32 | PROVIDERS: ATTEND Physician Assistant | DX: I11.9 Hypertensive heart disease without heart failure (principal) | CPT/HCPCS: 93306 ==

== ENCOUNTER → 2022-04-09 | Outpatient (CLI) | payer MEDICARE, MEDICAID ==
[~2022-04-09] MED LIST changes: +CLOP-31 PO; -CLOP75TA69 PO
--- NOTE | 2022-04-09 11:27 | Diagnostic Imaging Report ---
CT Lung Screening INDICATION: R91.1, pulmonary nodule, 70 pack-year history of smoking TECHNIQUE: Noncontrast, low-dose CT imaging performed according to the lung cancer screening protocol. Auto Exposure Controls were utilize during the CT exam to meet ALARA standards for radiation dose reduction. COMPARISON:10/07/2021 and 12/28/2012 FINDINGS:No significant adenopathy in the chest. Mild scattered vascular calcifications without aneurysmal dilatation of thoracic aorta. However, significant calcifications are identified within the coronary arteries. The heart is within normal limits in size. No pericardial effusion. No pleural effusion. The trachea is patent. No pneumothorax. Irregular 1 cm left lower lobe pulmonary nodule is present, having increased in size since the prior examination. This is best seen on series 2, image 94. 0.6 cm endobronchial filling defect is identified within the left upper lobe, series 2, image 95. This is new from the prior examination. 0.4 cm new right upper lobe pulmonary nodules present, series 2, image 78. This may be endobronchial as well. Partially visualized is a large bowel containing midline anterior abdominal wall hernia. Scattered osseous degenerative changes without acute osseous abnormality. IMPRESSION: A 1 cm irregular left lower lobe pulmonary nodule having increased in size since the prior examination is very suspicious. Recommend CT-guided biopsy for further evaluation. New endobronchial filling defects within the left upper lobe and right upper lobe as described are suspicious. Although this is favored to relate to secretions, true mass lesion/neoplasm not excluded. Follow-up CT of the chest within 3 months is recommended. Given small size, PET CT would likely not be beneficial for these regions. Large bowel containing midline ventral abdominal wall hernia is minimally visualized. Significant calcifications within the coronary arteries. LUNG-RADS CATEGORY:5: Very suspicious Follow-up: CT-guided biopsy is recommended for the dominant 1 cm left lower lobe pulmonary nodule. Additionally, followup CT of the chest within 3 months is recommended to reevaluate the new endobronchial filling defects within the bilateral upper lobes. Report was faxed and called to Gwendolyn, nurse office of Dr. Sousa by matthew at 11:27am. Dictated by: Dictated on workstation # [id number]
== END ==
LOC: RAD 09:26
PROVIDERS: ATTEND Internal Medicine
DX: R91.1 Solitary pulmonary nodule (principal)
CPT/HCPCS: 71271

== ENCOUNTER 2022-11-27 23:28 | Emergency (ER) | payer MEDICARE, MEDICAID ==
[~2022-11-27] VITALS: Ht 172 cm; Wt 83.0 kg
[2022-11-27 23:30] VITALS: BP 112/47
[2022-11-27] MEDS ORDERED: ACETAMINOPHEN 500 MG TABLET PO STA (23:32)
[2022-11-27] MEDS ORDERED: IBUPROFEN 800 MG TABLET PO STA (23:32)
[2022-11-27] MEDS ORDERED: LACTATED RINGERS 1,000 ML IV ONE (23:45)
[2022-11-27] MEDS ORDERED: CEFEPIME INJECTION 1,000 MG in NS (IVPB) 50 ML 50 ML IV ONE (23:45)
[2022-11-27] MEDS ORDERED: ONDANSETRON 4 MG/2 ML (SDV) Z0FRAN IVP ONE (23:45)
--- NOTE | 2022-11-27 23:50 | ED General ---
General Chief Complaint: Fever-Adult/Adol Stated Complaint: SHAKING,NAUSEA Nursing Triage Note: PATIENT STATES AT [facility] THIS AFTERNOON WITH LUNG BIOPSY, STATES AROUND 1400 PATIENT STARTED HAVING CHILLS, NAUSEA, WEAKNESS. STATES HASN'T EATEN COUPLE DAY. Source of Information: Patient (PT IS A VERY POOR HISTORIAN), Old Records History of Present Illness Date Seen by Provider: Nov 27, 2022 Time Seen by Provider: 23:30 Initial Comments PT ARRIVES VIA EMS FROM HOME ( EMS REPORT HE WAS IN HIS UNDERWEAR WHEN HE ANSWERED THE DOOR, DID NOT HAVE AIR CONDITIONING ON BECAUSE HE WAS COLD ( TEMP OUTSIDE > 100 DEGREES TODAY), AND EMS HAD TO WAIT FOR PT TO GET DRESSED AND SMOKE A CIGARETTE BEFORE HE WOULD ALLOW THEM TO TAKE HIM TO ER) PT HAD A BRONCHOSCOPY WITH LUNG BIOPSY TODAY AT [facility] BY DR. JOHNSON, GOT HOME AROUND 1400 WHEN HE GOT HOME, HE BEGAN HAVING CHILLS, AND NAUSEA AND GENERALIZED WEAKNESS STATES HE HAS NOT EATEN SINCE LAST NIGHT, HE HAD TO BE NPO FOR TODAY'S PROCEDURE, AND HAD NOT EATEN AFTER HE GOT HOME, BECAUSE HE STARTED SHIVERING. TRIED TO DRINK COFFEE BUT COULDN'T DRINK IT BECAUSE HE WAS SHIVERING SO BAD AND COULDN'T HOLD THE CUP HE HAS NOT CHECKED HIS TEMP AT HOME--STATES HE DOES HAVE A THERMOMETER TEMP FOR EMS WAS 102.6 NO COUGH--HE IS SPITTING UP PINK MUCOUS SINCE THE PROCEDURE NO SHORTNESS OF BREATH NO CHEST PAIN NO VOMITING OR DIARRHEA HE DOES C/O PAIN TO LEFT MID ABDOMEN OVER A LARGE VENTRAL HERNIA--STATES IT HURTS TO COUGH IN THIS AREA. HERNIA HAS BEEN PRESENT FOR A LONG TIME AND NO CHANGE IN SIZE NO URINARY SYMPTOMS AND VOIDING A NORMAL AMOUNT HE STATES HE IS ON ASPIRIN BUT NOT ON BLOOD THINNERS ANYMORE. STATES HE DOES NOT KNOW WHAT BLOOD THINNER HE WAS ON OR WHY OR WHEN HE STOPPED TAKING IT OR WHY HE STOPPED. STATES HE HAS SEEN DR. HASSAN, [employer] PIPE [employer]ANER, BUT DOES NOT KNOW WHY PCP: DR. CURRAN SEWER PIPE CLEANER: DR. HASSAN Allergies and Home Medications Allergies Coded Allergies: No Known Drug Allergies (Unverified , 12/28/12) Patient Home Medication List Home Medication List Reviewed: Yes Albuterol Sulfate (Ventolin Hfa) 1 Puff Puff, 2 PUFF INH Q4H PRN for WHEEZING Prescribed by: LEXY BARRON on 07/16/18 1121 Aspirin (Aspirin Ec 81 Mg) 81 Mg Tabec, 81 MG PO DAILY, (Reported) Entered as Reported by: CHEN ARNDT on 01/30/13 1052 Clopidogrel Bisulfate (Plavix) 75 Mg Tablet, 75 MG PO DAILY, (Reported) Entered as Reported by: AYLA DELGADILLO on 07/16/18 0940 Lisinopril (Zestril) 10 Mg Tab, 10 MG PO DAILY, (Reported) Entered as Reported by: CHEN ARNDT on 01/30/13 1052 Metoprolol Succinate (Toprol Xl 25MG) 25 Mg Tab.sr.24h, 25 MG PO DAILY, (Reported) Entered as Reported by: CHEN ARNDT on 01/30/13 105 Pantoprazole Sodium (Protonix) 40 Mg Tablet.dr, 40 MG PO DAILY, (Reported) Entered as Reported by: CHEN ARNDT on 01/30/13 105 Prednisone (Prednisone) 20 Mg Tab, 40 MG PO DAILY Prescribed by: LEXY BARRON on 07/16/18 1121 Tamsulosin HCl (Flomax) 0.4 Mg Cap, 0.4 MG PO, (Reported) Entered as Reported by: AYLA DELGADILLO on 07/16/18 0941 Review of Systems Review of Systems Constitutional: see HPI, chills, fever, malaise, weakness EENTM: no symptoms reported Respiratory: see HPI; No cough, No short of breath Cardiovascular: no symptoms reported; No chest pain Gastrointestinal: see HPI, abdominal pain; No constipation, No diarrhea; loss of appetite, nausea; No vomiting Genitourinary: no symptoms reported Musculoskeletal: no symptoms reported Skin: no symptoms reported Psychiatric/Neurological: No Symptoms Reported Hematologic/Lymphatic: No Symptoms Reported Immunological/Allergic: no symptoms reported Past Xwxewuy-Wbvlvs-Wwcamw Hx Patient Social History Tobacco Use?: Yes Tobacco type used: Cigarettes Smoking Status: Current Everyday Smoker Substance use?: No Alcohol Use?: Yes Immunizations Up To Date Tetanus Booster (TDap): Unknown Seasonal Allergies Seasonal Allergies: No Past Medical History Surgery/Hospitalization HX: back cyst, aneurysm, copd, htn, gerd Surgeries: Yes (CYST REMOVED FROM BACK, aneurysm;LUNG BX 11/27/22 AT [facility]) Respiratory: Yes COPD Cardiac: Yes Aneurysm, Hypertension Neurological: No Genitourinary: No Gastrointestinal: Yes Abdominal Hernia, Gastroesophageal Reflux Musculoskeletal: No Endocrine: No HEENT: No Cancer: No Psychosocial: No Integumentary: No Blood Disorders: No Family Medical History SOCIAL HISTORY: -SMOKES 2 PPD -HX OF ETOH ABUSE, CLAIMS NONE RECENTLY -DENIES DRUG USE Physical Exam Vital Signs Vital Signs - First Documented 11/27/22 23:30 Temp 39.0 Pulse 108 Resp 20 B/P (MAP) 112/47 (68) Pulse Ox 93 O2 Delivery Room Air Capillary Refill : Less Than 3 Seconds Height, Weight, BMI Height: 5'8.00" Weight: 200lbs. 5.0oz. [id number]; 28.00 BMI Method:Stated General Appearance: No Apparent Distress, WD/WN, Obese, Other (REEKS OF CIGARETTES) HEENT: PERRL/EOMI Neck: Normal Inspection Respiratory: Normal Breath Sounds, No Accessory Muscle Use, No Respiratory Distress Cardiovascular: No Murmur, Tachycardia Gastrointestinal: Normal Bowel Sounds, Soft, Other (PT HAS A VERY LARGE LEFT SIDED ABDOMINAL HERNIA--TAKES UP MOST OF THE LEFT SIDE OF HIS ABDOMEN WELL MID ABDOMEN. THE AREA IS SOFT, MILDLY TENDER. ) Back: No CVA Tenderness Extremity: Normal Inspection, No Pedal Edema Neurologic/Psychiatric: Alert, Oriented x3, No Motor/Sensory Deficits, digital media planner II- XII Norm as Tested Skin: Normal Color, Warm/Dry Focused Exam Sepsis Stage: Sepsis Possible Source: Pulmonary Lactate Level 11/27/22 23:35: Lactic Acid Level 4.11*H 11/28/22 01:47: Lactic Acid Level 1.97 Time of Focused Exam: 01:55 Respiratory: Normal Breath Sounds, No Accessory Muscle Use, No Respiratory Distress Cardiovascular: Regular Rate, Rhythm, No Murmur Capillary Refill: Less Than 3 Seconds Lactic Acid Level Laboratory Tests Test 11/27/22 23:35 11/28/22 01:47 Lactic Acid Level 4.11 MMOL/L (0.50-2.00) *H 1.97 MMOL/L (0.50-2.00) Within 3hrs of presentation: Admin fluids, Admin ABX, Blood cultures prior to ABX's, Focus exam, Lactate level Progress/Results/Core Measures Suspected Sepsis SIRS Temperature: Pulse: 108 Respiratory Rate: 20 Laboratory Tests 8/4/23 23:35: White Blood Count 7.9 Blood Pressure 112 /47 Mean: 68 11/27/22 23:35: Lactic Acid Level 4.11*H 11/28/22 01:47: Lactic Acid Level 1.97 Laboratory Tests 11/27/22 23:35: Creatinine 0.98, INR Comment 1.0, Platelet Count 184, Total Bilirubin 0.5 Results/Orders Lab Results Laboratory Tests Test 11/27/22 00:40 11/27/22 23:30 11/27/22 23:35 11/28/22 01:47 Range/Units Urine Color YELLOW Urine Clarity CLEAR Urine pH 6.0 5-9 Urine Specific [place] 1.020 1.016-1.022 Urine Protein NEGATIVE NEGATIVE Urine Glucose (UA) NEGATIVE NEGATIVE Urine Ketones NEGATIVE NEGATIVE Urine Nitrite NEGATIVE NEGATIVE Urine Bilirubin NEGATIVE NEGATIVE Urine Urobilinogen .2 < = 1.0 MG/DL Urine Leukocyte Esterase NEGATIVE NEGATIVE Urine RBC (Auto) NEGATIVE NEGATIVE Urine RBC NONE /HPF Urine WBC NONE /HPF Urine Crystals NONE /LPF Urine Bacteria NEGATIVE /HPF Urine Casts PRESENT /LPF Urine Hyaline Casts RARE /LPF Urine Mucus SMALL H /LPF Urine Culture Indicated NO Influenza Type A (RT-PCR) Not Detected Not Detecte Influenza Type B (RT-PCR) Not Detected Not Detecte SARS-CoV-2 RNA (RT-PCR) Not Detected Not Detecte White Blood Count 7.9 4.3-11.0 10^3/uL Red Blood Count 4.50 4.30-5.52 10^6/uL Hemoglobin 13.6 13.3-17.7 g/dL Hematocrit 41 40-54 % Mean Corpuscular Volume 90 80-99 fL Mean Corpuscular Hemoglobin 30 25-34 pg Mean Corpuscular Hemoglobin Concent 34 32-36 g/dL Red Cell Distribution Width 13.7 10.0-14.5 % Platelet Count 184 130-400 10^3/uL Mean Platelet Volume 10.3 9.0-12.2 fL Immature Granulocyte % (Auto) 0 % Neutrophils (%) (Auto) 88 H 42-75 % Lymphocytes (%) (Auto) 9 L 12-44 % Monocytes (%) (Auto) 3 0-12 % Eosinophils (%) (Auto) 0 0-10 % Basophils (%) (Auto) 0 0-10 % Neutrophils # (Auto) 7.0 1.8-7.8 10^3/uL Lymphocytes # (Auto) 0.7 L 1.0-4.0 10^3/uL Monocytes # (Auto) 0.2 0.0-1.0 10^3/uL Eosinophils # (Auto) 0.0 0.0-0.3 10^3/uL Basophils # (Auto) 0.0 0.0-0.1 10^3/uL Immature Granulocyte # (Auto) 0.0 0.0-0.1 10^3/uL Neutrophils % (Manual) 82 % Lymphocytes % (Manual) 14 % Monocytes % (Manual) 4 % Blood Morphology Comment NORMAL Prothrombin Time 13.8 12.2-14.7 SEC INR Comment 1.0 0.8-1.4 Activated Partial Thromboplast Time 24 24-35 SEC Sodium Level 136 135-145 MMOL/L Potassium Level 4.2 3.6-5.0 MMOL/L Chloride Level 104 98-107 MMOL/L Carbon Dioxide Level 18 L 21-32 MMOL/L Anion Gap 14 5-14 MMOL/L Blood Urea Nitrogen 20 H 7-18 MG/DL Creatinine 0.98 0.60-1.30 MG/DL Estimat Glomerular Filtration Rate 79 BUN/Creatinine Ratio 20 Glucose Level 130 H 70-105 MG/DL Lactic Acid Level 4.11 *H 1.97 0.50-2.00 MMOL/L Calcium Level 8.8 8.5-10.1 MG/DL Corrected Calcium 8.9 8.5-10.1 MG/DL Total Bilirubin 0.5 0.1-1.0 MG/DL Aspartate Amino Transf (AST/SGOT) 16 5-34 U/L Alanine Aminotransferase (ALT/SGPT) 13 0-55 U/L Alkaline Phosphatase 57 40-136 U/L Total Protein 6.6 6.4-8.2 GM/DL Albumin 3.9 3.2-4.5 GM/DL Amylase Level 38 25-125 U/L Lipase 24 8-78 U/L Micro Results Microbiology 11/27/22 Blood Culture - Preliminary, Resulted No growth My Orders Orders - RICHARD QUINTANILLA DO Ed Iv/Invasive Line Start (11/27/22 23:32) Monitor-Rhythm Ecg Trace Only (11/27/22 23:32) Amylase (11/27/22 23:32) Cbc With Automated Diff (11/27/22 23:32) Comprehensive Metabolic Panel (11/27/22 23:32) Lipase (11/27/22 23:32) Ua Culture If Indicated (11/27/22 23:32) Covid 19 Inhouse Test (11/27/22 23:32) Influenza A And B By Pcr (11/27/22 23:32) Blood Culture (11/27/22 23:32) Sputum Culture (11/27/22 23:32) Urine Culture (11/27/22 23:32) Protime With Inr (11/27/22 23:32) Partial Thromboplastin Time (11/27/22 23:32) Ed Iv/Invasive Line Start (11/27/22 23:32) Ed Iv/Invasive Line Start (11/27/22 23:32) Vital Signs Adult Sepsis Patie Q15M (11/27/22 23:32) Remove Rings In Anticipation O (11/27/22 23:32) Lactic Acid Analyzer (11/27/22 23:32) Lactated Ringers (Lr 1000 Ml Iv Solution (11/27/22 23:45) Cefepime Injection (Cefepime Injection) (11/27/22 23:45) Acetaminophen Tablet (Acetaminophen Ta (11/27/22 23:32) Ibuprofen Tablet (Motrin Tablet) (11/27/22 23:32) Ondansetron Injection (Zofran Injectio (11/27/22 23:45) Chest 1 View, Ap/Pa Only (11/28/22 00:01) Manual Differential (11/27/22 23:35) Ed Iv/Invasive Line Start (11/28/22 00:16) Ns Iv 1000 Ml (Sodium Chloride 0.9%) (11/28/22 00:30) Ct Roxy Chest/Noang Abd-Pelv W (11/28/22 00:35) Ed Iv/Invasive Line Start (11/28/22 03:04) Lactated Ringers (Lr 1000 Ml Iv Solution (11/28/22 03:15) Vancomycin Injection (Vancomycin Injecti (11/28/22 03:15) Vancomycin Injection (Vancomycin Injecti (11/28/22 04:15) Medications Given in ED Vital Signs/I&O 11/27/22 11/27/22 11/27/22 23:30 23:49 23:50 Temp 39.0 39.0 39.0 Pulse 108 Resp 20 B/P (MAP) 112/47 (68) Pulse Ox 93 O2 Delivery Room Air Capillary Refill : Less Than 3 Seconds Blood Pressure Mean: 68 Progress Note : Progress Note PPE WORN COVID AND FLU TESTING DONE SEPSIS PROTOCOL INITIATED VITALS ON ARRIVAL: TEMP 39--102.2, HR 108, RR 20, O2 SAT 92-93% ON ROOM AIR PLACED ON O2 AT 2L/NC AND O2 SATS 95-98% GIVEN: -IV FLUIDS -ZOFRAN -TYLENOL AND MOTRIN -CEFEPIME + VANCOMYCIN LABS INCLUDING CBC, CMP, UA ARE UNREMARKABLE WBC 7.9 LACTIC ACID ELEVATED AT 4.11 COVID AND FLU TESTS NEGATIVE CXR WITH BIBASILAR INFILTRATES. PENDING RADIOLOGIST REVIEW CT SCAN SHOWS ENTIRE LEFT LOWER LOBE WITH HEMORRHAGE AND/OR EDEMA AND/OR PNEUMONIA. TEMP, AND HEART RATE DOWN. BP DID DROP TO 90'S SYSTOLIC BUT QUICKLY BACK UP TO > 100 SYSTOLIC WITH ADDITIONAL FLUIDS BP REMAINED > 100 SYSTOLIC FOR REMAINDER OF ER STAY 0330--HAVE DISCUSSED PLAN OF CARE WITH PT AND NEED FOR TRANSFER. PT NOW IS VERY ARGUMENTATIVE, STATING HE HAS TO GO HOME AND TURN ON HIS AIRCONDITIONING AND FEED HIS BIRD AND GET SOMETHING TO EAT HIMSELF--AND THEN HE STATES HE WILL COME BACK AND THEN HE WILL GO TO [place]. HE IS REFUSING TO SIGN TRANSFER PAPERWORK. EXHAUSTIVE CONVERSATIONS WITH PT ABOUT THE SERIOUSNESS OF HIS CONDITION, AND ADVISED HIM THAT LEAVING IS NOT IN HIS BEST INTEREST AND THAT HE WOULD BE LEAVING AGAINST MEDICAL ADVICE, AND THAT DOING SO MAY RESULT IN HIS OR SIGNIFICANT WORSENING OF HIS CONDITION. HE REMAINS ADAMANT ABOUT GOING HOME AND TAKING CARE OF THE ABOVE. HE STATES HE HAS NO FAMILY OR FRIENDS OR NEIGHBORS WHO COULD TAKE CARE OF HIS BIRD AND TURN ON THE AIR CONDITIONING. RN IS CONTACTING POLICE DEPT TO SEE IF THEY CAN ASSIST WITH TAKING CARE OF THE ABOVE FOR THE PATIENT, SO HE WILL AGREE TO BEING TRANSFERRED. [id number]--[place] FIN[employer] HERE TO SEE PT AND HAS AGREED TO TAKE CARE OF PT'S BIRD AND HIS APARTMENT AND BRING HIM CLOTHES OR PERSONAL ITEMS THAT HE MIGHT NEED. OFFERED NICOTINE PATCH AND HE REFUSES. HAVE ADVISED PT MULTIPLE TIMES THAT HE COULD NOT HAVE ANYTHING TO EAT AT THIS TIME HE WAS BEING TRANSFERRED AND MAY POTENTIALLY NEED TO HAVE A PROCEDURE WHEN HE GETS TO [place]. 419--PT REFUSES TO STAY AND REFUSES TO HAVE POLICE TAKE CARE OF HIS BIRD AND TURN ON HIS AIRCONDITIONING. PT IS NOW BECOMING MORE VERBALLY AGGRESSIVE, AND STATES "I GOT ALOT OF OTHER THINGS TO DO" AND "I NEED TO EAT--I'M GONNA GO HAVE A DONUT" "I'M GONNA GO SMOKE A CIGARETTE" HAVE REPEATEDLY AND VERY STRONGLY ADVISED AND ENCOURAGED PT TO STAY AND BE TRANS FERRED, [facility] HAS GRACIOUSLY AGREED TO TRANSFER HIM AND IS ON THEIR WAY HERE FROM [place], AND THAT [place] HAS MADE ACCOMODATIONS FOR HIM DESPITE THE FACT THAT THEY ARE AT [place]. HE CONTINUES TO REFUSE ALL, AND HAS RIPPED OUT HIS IV AND RIPPED OFF HIS MONITOR LEADS AND STATES HE IS LEAVING. PT REPEATEDLY ADVISED THAT HE COULD IF HE LEAVES AND HE CONTINUES TO REFUSE TO STAY HERE IN ER AND BE TRANSFERRED TO [place]. AMA PAPERS SIGNED BY PT. 424--CALLED CHILDRESS AND INFORMED THEM THAT PT HAS LEFT AGAINST MEDICAL ADVICE. Diagnostic Imaging Comments CXR--BIBASILAR INFILTRATES, PENDING RADIOLOGIST REVIEW CT CHEST ANGIOGRAM / ABDOMEN-PELVIS--PER [facility] VIA FAX AT 0204 -MILD LEFT PLEURAL EFFUSION -LARGE AREA OF INFILTRATE/CONSOLIDATION OF THE ENTIRE LEFT LOWER LOBE--CONCERNING FOR HEMORRHAGE AND/OR EDEMA. PNEUMONIA LESS LIKELY BUT NOT EXCLUDED. -KNOWN LLL PULMONARY NODULE IS OBSCURED BY THE CONSOLIDATION -NO PNEUMOTHORAX OR CONTRAST EXTRAVASATION - Reviewed: Reviewed by Me Departure Communication (Admissions) 205--ATTEMPTING TO CONTACT DR. HDZ, HOSPITALIST. MESSAGE LEFT ON PHONE 218--CALLED DR. HDZ. HE ADVISES TO TRANSFER TO [place], PT JUST HAD PROCEDURE THERE TODAY 222--CALLED CHILDRESS. THEY ARE AT [place] AND ARE NOT ACCEPTING ANY MORE PATIENTS AT THIS TIME. SHE WILL DISCUSS WITH ADMINISTRATION AND CALL BACK, PT JUST HAD A PROCEDURE THERE AND IS HAVING ISSUES RELATED TO THE PROCEDURE. 299--[facility] CALLED BACK. THEY WILL ACCEPT THE PATIENT. SPOKE WITH DR. GRANT, CV SURGEON. SHE ADVISES TO ADMIT TO ICU / [employer] AND SHE WILL SEE PT IN CONSULT. 306--SPOKE WITH DR. REICH, [employer], ACCEPTS PT FOR ADMIT/TRANSFER. ER STAFF ATTEMPTING TO ARRANGE FOR TRANSPORT. [facility] DOES NOT HAVE ANY TRANSFER CREWS AVAILABLE AT THIS TIME. 0410--[facility] WILL BE HERE TO TRANSFER PT. Impression Primary Impression: Left against medical advice Additional Impressions: Sepsis LLL INFILTRATE--PNEUMONIA AND/OR HEMORRHAGE S/P bronchoscopy with biopsy COPD (chronic obstructive pulmonary disease) Disposition: 07 AGAINST MEDICAL ADVICE Condition: Against Medical Advice Departure-Patient Inst. Referrals: ARELI CURRAN DO (PCP/Family) Primary Care Physician RICHARD QUINTANILLA DO Nov 27, 2022 23:50
[2022-11-28 00:03] LABS: BASOPHILS % (AUTO) 0 % (0-10); EOSINOPHILS % (AUTO) 0 % (0-10); HEMATOCRIT 41 % (40-54); HEMOGLOBIN 13.6 g/dL (13.3-17.7); LYMPHOCYTES # (AUTO) 0.7 10^3/uL (1.0-4.0); LYMPHOCYTES % (AUTO) 9 % (12-44); MEAN CORPUSCULAR HEMOGLOBIN 30 pg (25-34); MEAN CORPUSCULAR HGB CONC 34 g/dL (32-36); MEAN CORPUSCULAR VOLUME 90 fL (80-99); MEAN PLATELET VOLUME 10.3 fL (9.0-12.2); MONOCYTES # (AUTO) 0.2 10^3/uL (0.0-1.0); MONOCYTES % (AUTO) 3 % (0-12); NEUTROPHILS % (AUTO) 88 % (42-75); PLATELET COUNT 184 10^3/uL (130-400); WHITE BLOOD COUNT 7.9 10^3/uL (4.3-11.0)
[2022-11-28 00:08] LABS: ALBUMIN 3.9 GM/DL (3.2-4.5); POTASSIUM 4.2 MMOL/L (3.6-5.0)
[2022-11-28 00:09] LABS: CALCIUM 8.8 MG/DL (8.5-10.1); PROTHROMBIN TIME PATIENT 13.8 SEC (12.2-14.7)
[2022-11-28 00:11] LABS: TOTAL PROTEIN 6.6 GM/DL (6.4-8.2)
[2022-11-28 00:12] LABS: BILIRUBIN,TOTAL 0.5 MG/DL (0.1-1.0)
[2022-11-28 00:14] LABS: CREATININE SERUM 0.98 MG/DL (0.60-1.30)
[2022-11-28 00:30] LABS: LYMPHOCYTES % (MANUAL) 14 %; MONOCYTES % (MANUAL) 4 %; NEUTROPHILS % (MANUAL) 82 %
[2022-11-28] MEDS ORDERED: NS IV 1000 ML 1,000 ML IV SCH (00:30)
[2022-11-28 00:31] LABS: RBC MORPH NORMAL
[2022-11-28 00:54] LABS: BACTERIA,URINE NEGATIVE /HPF; BILIRUBIN,URINE NEGATIVE (NEGATIVE); CLARITY,URINE CLEAR; COLOR,URINE YELLOW; GLUCOSE, URINE (UA) NEGATIVE (NEGATIVE); KETONES,URINE NEGATIVE (NEGATIVE); LEUKOCYTE ESTERASE ,URINE NEGATIVE (NEGATIVE); NITRITE,URINE NEGATIVE (NEGATIVE); PROTEIN,URINE NEGATIVE (NEGATIVE)
[2022-11-28 00:55] LABS: HYALINE CASTS, URINE RARE /LPF
[2022-11-28] MEDS ORDERED: LACTATED RINGERS 1,000 ML IV ONE (03:15)
[2022-11-28] MEDS ORDERED: VANCOMYCIN INJECTION 1,000 MG in NS (IVPB) 250 ML 250 ML IV ONE (03:15)
[2022-11-28] MEDS ORDERED: VANCOMYCIN INJECTION 750 MG in NS (IVPB) 250 ML 250 ML IV ONE (04:15)
--- NOTE | 2022-11-28 05:35 | Diagnostic Imaging Report ---
EXAMINATION: CT angiography of the chest and abdomen. TECHNIQUE: After intravenous administration of contrast, thin section axial CT angiography of the abdomen and chest were obtained. 3D MIP reformats were provided. All CT scans use one or more of the following dose optimizing techniques: automated exposure control, MA and/or KvP adjustment based on a patient size and exam type, or iterative reconstruction. HISTORY: FEVER, POST LUNG BX, LEFT ABDOMINAL PAIN COMPARISON: CT of the chest 04/09/2022. FINDINGS: Normal caliber aorta pulmonary artery. No acute pulmonary emboli. Patent great vessels. Stable 2.2 cm saccular aneurysm of the abdominal aortic bifurcation. Large consolidation left lower lobe . Small left pleural effusion. No pneumothorax. No suspicious nodules. There is no axillary or supraclavicular lymphadenopathy. There is no mediastinal lymphadenopathy. Heart size is normal. There are mild coronary artery calcifications. No pericardial effusion. Aorta is normal in caliber. The liver is normal without focal lesion. There is no biliary ductal dilation. Gallbladder demonstrates cholelithiasis.. Pancreas is normal. Spleen is normal. Adrenal glands are normal. The kidneys are normal. There is no hydronephrosis. Multiple ventral hernias containing loops of small and large bowel. Visualized bowel is normal in caliber without obstruction or inflammation. No free fluid or air. No abdominal lymphadenopathy. There are no suspicious osseus lesions. 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 IMPRESSION: Large consolidation in left lower lobe concerning for pneumonia. Recommend correlation with timing of recent lung biopsy as it could also represent alveolar hemorrhage. No pneumothorax. Small left pleural effusion. Cholelithiasis. Multiple ventral hernias containing loops of small and large bowel. No associated bowel obstruction . Stable 2.2 cm saccular aneurysm of the abdominal aortic bifurcation. Dictated by: Dictated on workstation # [id number]
--- NOTE | 2022-11-28 07:14 | Diagnostic Imaging Report ---
INDICATION: Fever. Time of Exam: 12:11 AM Correlation is made with prior chest from 07/16/2018. Heart size is normal. There appears to be some infiltrate in the left base. Right lung is clear. There is no effusion or pneumothorax identified. IMPRESSION: Left basilar pneumonia. Dictated by: Dictated on workstation # [id number]
== END 2022-11-28 04:00 | disposition left against medical advice (07) ==
LOC: EDUNIT# 23:28 → ER 23:31
DX: A41.9 Sepsis, unspecified organism (principal); J18.8 Other pneumonia, unspecified organism; J44.9 Chronic obstructive pulmonary disease, unspecified; R74.02 Elevation of levels of lactic acid dehydrogenase [LDH]; F17.210 Nicotine dependence, cigarettes, uncomplicated; Z98.890 Other specified postprocedural states; Z20.822 Contact with and (suspected) exposure to COVID-19
CPT/HCPCS: 36415; 71045; 71275; 74177; 80053; 81000; 82150; 83605; 83690; 85007; 85027; 85610; 85730; 87040; 87088; 87636; 96361; 96365; 96367; 96375